=== PATIENT | female | born 1940 | race Caucasian/White ===

== ENCOUNTER 2016-08-23 19:14 | Inpatient (IN) ==
[2016-08-23 20:25] LABS: Basophils # 0.1 K/mcL (0.0-0.2); Basophils % 0.9 %; Eosinophils # 0.1 K/mcL (0.0-0.6); Eosinophils % 1.2 %; Hematocrit 33.2 % (35.3-44.9); Hemoglobin 10.2 g/dL (11.5-15.4); Immature Granulocytes % 0.5 % (0-4); Lymphocytes % 15.8 %; Mean Corpuscular HGB Conc 30.7 g/dL (31.6-35.5); Mean Corpuscular Hemoglobin 29.9 pg (28.0-33.3); Mean Corpuscular Volume 97.4 fL (83.0-100.0); Mean Platelet Volume 11.4 fL (9.4-12.4); Monocytes # 0.4 K/mcL (0.0-1.3); Monocytes % 6.4 %; Neutrophils # 4.9 K/mcL (1.6-8.9); Platelet Count 212 K/mcL (140-400); Red Blood Count 3.41 M/mcL (3.82-4.97); Red Cell Distribution Width 15.9 % (11.5-14.5); Segmented Neutrophils % 75.2 %
[2016-08-23 20:38] LABS: Bilirubin,Urine Negative (Negative); Blood,Urine Small (Negative); Clarity,Urine Cloudy (Clear); Color,Urine Yellow (Yellow); Glucose,Urine (UA) Normal (Normal); Ketones,Urine Negative (Negative); Leukocyte Esterase,Urine Moderate (Negative); Nitrite,Urine Negative (Negative); PH,Urine 5.5 pH Units (5.0-8.0); Protein,Urine 30 mg/dL (Neg-Trace); Specific Gravity,Urine 1.015 (1.010-1.025); Urobilinogen,Urine Normal (Normal)
[2016-08-23 20:39] LABS: Calcium 8.9 mg/dL (8.6-10.8); Potassium 5.1 mEq/L (3.5-4.5)
[2016-08-23 20:40] LABS: Bacteria,Urine None Seen per hpf (None-Few); Hyaline Casts,Urine Few per lpf (None-Few); Squamous Epithelial Cell,Urine Many per lpf (None-Few); WBC,Urine 50-100 per hpf (0-3)
[2016-08-23 20:51] LABS: Yeast,Urine Few per hpf (None Seen)
--- NOTE | 2016-08-23 21:21 | Emergency Department Note ---
Disposition Clinical Impression: Weakness UTI (urinary tract infection) Qualifiers: Urinary tract infection type: site unspecified Hematuria presence: without hematuria Qualified Code(s): N39.0 - Urinary tract infection, site not specified Disposition: Admitted As Inpatient Condition: Good General Adult HPI - General Chief complaint: ED Shortness of Breath/Dyspnea Stated complaint: jamal Time Seen by Provider: 08/23/16 19:21 Source: EMS Limitations: age Nursing Notes Reviewed: Yes Vital Signs Reviewed: Yes - History of Present Illness HPI Narrative: Patient here for evaluation of generalized weakness and no improvement. Patient was recently admitted to the hospital for weakness and reported pneumonia. Upon reevaluation appears that patient had mild CHF exacerbation as well as UTI. Patient's symptoms have not improved over the last several days so she presents at family's concern for reevaluation. Patient states mild cough. Mental cloudiness. Significant fatigue. Pain Scale: 0 - Related Data Home Medications Medication Instructions Recorded Confirmed Aspirin 81 mg PO DAILY 04/26/15 08/23/16 Clopidogrel [Plavix] 75 mg PO DAILY 04/26/15 08/23/16 Spironolactone [Aldactone] 25 mg PO BID 04/26/15 08/23/16 Acetaminophen [Tylenol] 650 mg PO Q6HR PRN 07/16/16 08/23/16 Albuterol Neb [Proventil Neb] 2.5 mg IH Q6H PRN 07/16/16 08/23/16 DiphenhydraMINE [Benadryl] 25 mg PO Q4H PRN 07/16/16 08/23/16 Insulin ASPART [NovoLOG] 0 unit SQ ACHS MDD Sliding Scale 07/16/16 08/23/16 Mirtazapine [Remeron] 15 mg PO HS 07/16/16 08/23/16 Morphine Sulfate 0.25 ml PO Q4H PRN 07/16/16 08/23/16 Nitroglycerin 4.1 gm TL PRN PRN 07/16/16 08/23/16 Oxygen 2 l NS PRN PRN 07/16/16 08/23/16 Prochlorperazine Maleate 10 mg PO Q6H PRN 07/16/16 08/23/16 [Compazine] Scopolamine Patch [Transderm-Scop] 1.5 mg TD Q72H PRN 07/16/16 08/23/16 Docusate Sodium [Dok] 100 mg PO BID PRN 08/12/16 08/23/16 Oxybutynin Chloride [Ditropan Xl] 10 mg PO DAILY 08/12/16 08/23/16 Pantoprazole Sodium [Protonix] 20 mg PO DAILY 08/12/16 08/23/16 Hydrocodone/Acetaminophen [[place] 1 tab PO Q6H PRN 08/23/16 08/23/16 5-325 Tablet] Previous Rx's Medication Instructions Recorded Sennosides/Docusate Sodium [Senna 1 each PO BID #60 tablet 07/19/16 Plus] LORazepam [Ativan] 0.5 mg PO BID PRN #10 tablet 08/14/16 Megestrol Acetate [Megace] 400 mg PO DAILY 60 Days 08/14/16 Nitrofurantoin [Macrodantin] 100 mg PO BID #7 capsule 08/14/16 Allergies Allergy/AdvReac Type Severity Reaction Status Date / Time No Known Allergies Allergy Verified 08/12/16 16:29 All systems ED: reviewed and negative except as stated. Constitutional: Reports: weakness. Denies: fever, chills Eyes: Denies: eye pain ENT ED: Denies: ear pain Cardiovascular: Denies: chest pain, palpitations Respiratory: Reports: cough Gastrointestinal: Denies: abdominal pain, nausea, vomiting Genitourinary: Denies: urgency, dysuria, frequency Musculoskeletal: Denies: back pain Integumentary: Denies: rash Neurological: Reports: weakness. 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 Absent : tenderness - Respiratory Respiratory exam: Present: other (Rales bilaterally). Absent: respiratory distress - Cardiovascular Cardiovascular exam: Present: regular rate, normal rhythm - Abdominal Exam Abdominal exam: Present: soft, Non-Tender - Extremities Exam Extremities exam: Present: other (Patient does not move her lower extremities at baseline. Wheelchair-bound.) Course - Reevaluation(s) Reevaluation #1: Patient with multiple comorbidities as well as urine concerning for infection and troponin as well as EKG changes. Patient will be admitted to the hospital service for further evaluation. Antibiotics not started at this time due to patient's complex history and allowing the hospital team to do this as early treatment of them. . - Consultations Consultation #1: Discussed with Dr. Marcano. Patient accepted for admission. Vital Signs Temperature 97.7 F 08/23/16 19:16 Pulse Rate 103 08/23/16 19:16 Respiratory Rate 20 08/23/16 19:16 Blood Pressure 118/75 08/23/16 19:16 O2 Sat by Pulse Oximetry 100 08/23/16 19:16 Temperature 97.7 F 08/23/16 19:16 Pulse Rate 92 08/23/16 22:44 Respiratory Rate 22 08/23/16 23:53 Blood Pressure 117/78 08/23/16 23:53 O2 Sat by Pulse Oximetry 97 08/23/16 22:44 Oxygen Delivery Oxygen Delivery Room Air Medical Decision Making - Medical Records Medical records reviewed: Yes I reviewed the patient's medical records. - Lab Data Lab results reviewed: Yes I reviewed the patient's lab results. Result diagrams: 08/23/16 20:15 08/23/16 20:15 Lab Results 08/23/16 08/23/16 08/23/16 Range/Units 19:28 20:15 20:15 WBC 6.5 (4.3-11.1) K/mcL RBC 3.41 L (3.82-4.97) M/mcL Hgb 10.2 L (11.5-15.4) g/dL Hct 33.2 L (35.3-44.9) % MCV 97.4 (83.0-100.0) fL MCH 29.9 (28.0-33.3) pg MCHC 30.7 L (31.6-35.5) g/dL RDW 15.9 H (11.5-14.5) % Plt Count 212 (140-400) K/mcL MPV 11.4 (9.4-12.4) fL Immature Gran % 0.5 (0-4) % Seg Neutrophils % 75.2 % Lymphocytes % 15.8 % Monocytes % 6.4 % Eosinophils % 1.2 % Basophils % 0.9 % Neutrophils # 4.9 (1.6-8.9) K/mcL Lymphocytes # 1.0 (0.6-4.6) K/mcL Monocytes # 0.4 (0.0-1.3) K/mcL Eosinophils # 0.1 (0.0-0.6) K/mcL Basophils # 0.1 (0.0-0.2) K/mcL Immature Plt Fraction 4.0 (1.1-6.1) % Sodium 137 (136-145) mEq/L Potassium 5.1 H (3.5-4.5) mEq/L Chloride 110 H (98-109) mEq/L Carbon Dioxide 18 L (19-29) mEq/L BUN 25 H (7-20) mg/dL Creatinine 1.45 H (0.57-1.11) mg/dL Est GFR ( Amer) 43 L (> 60) Est GFR (Non-Af Amer) 35 L (> 60) BUN/Creatinine Ratio 17 (6-26) Glucose 154 H (70-99) mg/dL POC Glucose 191 H (58-89) Calculated Osmolality 291 (280-300) Calcium 8.9 (8.6-10.8) mg/dL Troponin I (0-0.03) ng/mL B-Natriuretic Peptide (0-100) pg/mL Urine Color (Yellow) Urine Clarity (Clear) Urine pH (5.0-8.0) pH Units Ur Specific [place] (1.010-1.025) Urine Protein (Neg-Trace) mg/dL Urine Glucose (UA) (Normal) mg/dL Urine Ketones (Negative) mg/dL Urine Blood (Negative) Urine Nitrite (Negative) Urine Bilirubin (Negative) Urine Urobilinogen (Normal) mg/dL Ur Leukocyte Esterase (Negative) Urine Microscopic RBC (0-3) per hpf Urine Microscopic WBC (0-3) per hpf Ur Squamous Epith Cells (None-Few) per lpf Urine Bacteria (None-Few) per hpf Hyaline Casts (None-Few) per lpf Urine Yeast (None Seen) per hpf Ur Culture Indicated? (NO) 08/23/16 08/23/16 08/23/16 Range/Units 20:15 20:15 20:33 WBC (4.3-11.1) K/mcL RBC (3.82-4.97) M/mcL Hgb (11.5-15.4) g/dL Hct (35.3-44.9) % MCV (83.0-100.0) fL MCH (28.0-33.3) pg MCHC (31.6-35.5) g/dL RDW (11.5-14.5) % Plt Count (140-400) K/mcL MPV (9.4-12.4) fL Immature Gran % (0-4) % Seg Neutrophils % % Lymphocytes % % Monocytes % % Eosinophils % % Basophils % % Neutrophils # (1.6-8.9) K/mcL Lymphocytes # (0.6-4.6) K/mcL Monocytes # (0.0-1.3) K/mcL Eosinophils # (0.0-0.6) K/mcL Basophils # (0.0-0.2) K/mcL Immature Plt Fraction (1.1-6.1) % Sodium (136-145) mEq/L Potassium (3.5-4.5) mEq/L Chloride (98-109) mEq/L Carbon Dioxide (19-29) mEq/L BUN (7-20) mg/dL Creatinine (0.57-1.11) mg/dL Est GFR ( Amer) (> 60) Est GFR (Non-Af Amer) (> 60) BUN/Creatinine Ratio (6-26) Glucose (70-99) mg/dL POC Glucose (58-89) Calculated Osmolality (280-300) Calcium (8.6-10.8) mg/dL Troponin I 0.05 H* (0-0.03) ng/mL B-Natriuretic Peptide 1097 H (0-100) pg/mL Urine Color Yellow (Yellow) Urine Clarity Cloudy A (Clear) Urine pH 5.5 (5.0-8.0) pH Units Ur Specific [place] 1.015 (1.010-1.025) Urine Protein 30 H (Neg-Trace) mg/dL Urine Glucose (UA) Normal (Normal) mg/dL Urine Ketones Negative (Negative) mg/dL Urine Blood Small H (Negative) Urine Nitrite Negative (Negative) Urine Bilirubin Negative (Negative) Urine Urobilinogen Normal (Normal) mg/dL Ur Leukocyte Esterase Moderate H (Negative) Urine Microscopic RBC 3-5 H (0-3) per hpf Urine Microscopic WBC 50-100 H (0-3) per hpf Ur Squamous Epith Cells Many H (None-Few) per lpf Urine Bacteria None Seen (None-Few) per hpf Hyaline Casts Few (None-Few) per lpf Urine Yeast Few H (None Seen) per hpf Ur Culture Indicated? YES A (NO) - Radiology Data Radiology results reviewed: Yes I reviewed the patient's radiology results. - EKG Data EKG #1 EKG attestation: Yes I reviewed and interpreted this EKG. EKG results narrative: EKG shows sinus tachycardia with ventricular rate of 104. ME interval 152. QRS 87. QTC 4606. Patient has no ST elevations or depressions. Patient has inverted T waves in the anterior leads. Patient with inferior T-wave inversions new from 08/12/16. Patient also has new inferior T-wave changes. Attestation Statement - Attestation Attestation: I examined this patient and my medical decision-making was reviewed with the Resident Physician. I agree with the documented findings, disposition and treatment plan as described except to the extent set forth below. Generalized weakness with UTI. Has non-specific inferior T-wave changes compared to EKG from a week ago, troponin borderline at 0.05. HD stable, appears somewhat weak and frail but non-toxic.
[2016-08-23] MEDS ORDERED: Aspirin 81 MG TAB.CHEW PO STA (22:30)
[2016-08-23] MEDS ORDERED: *HR* Morphine 2 MG/ML SYRINGE IVP PRN (23:31)
[2016-08-23] MEDS ORDERED: *HR* OxyCODONE Immed Rel 5 MG TABLET PO PRN (23:31)
[2016-08-23] MEDS ORDERED: Acetaminophen 325 MG TABLET PO PRN (23:31)
[2016-08-23] MEDS ORDERED: *HR* Promethazine 25 MG/ML VIAL IVP PRN (23:31)
[2016-08-23] MEDS ORDERED: Naloxone 0.4 MG/ML INJ IVP PRN (23:31)
[2016-08-23] MEDS ORDERED: Albuterol 2.5 MG/3 ML NEBULIZER IH PRN (23:42)
[2016-08-23] MEDS ORDERED: MORPHINE SULFATE PO PRN (23:42)
[2016-08-23] MEDS ORDERED: NON-FORMULARY MEDICATION 1 EACH EACH (Oxygen [Oxygen] 2 L) NS PRN (23:42)
[2016-08-24 00:09] LABS: VBG PH 7.39 pH Units (7.32-7.42)
[2016-08-24 00:15] LABS: Ionized Calcium 0.95 mmol/L (1.15-1.35)
[2016-08-24 00:18] LABS: VBG HCO3 16.5 mEq/L (21-27)
[2016-08-24 00:24] LABS: Magnesium 1.7 mg/dL (1.6-2.6); Phosphorous 3.2 mg/dL (2.3-4.7)
[2016-08-24] MEDS: Ampicillin/Sulbactam 1,500 MG in 0.9 % Sodium Chloride Mini Bag 100 ML IVPB SCH ×4 (00:55→18:05)
[2016-08-24] MEDS ORDERED: Magnesium Sulfate 1 GM in D5% in Water 100 ML IVPB ONE (01:51)
[2016-08-24] MEDS ORDERED: Calcium Gluconate 2,000 MG in D5% in Water 100 ML IVPB ONE (01:51)
--- NOTE | 2016-08-24 02:21 | Internal Med History&Physical ---
<Anthony Reed - Last Filed: 08/24/16 02:51> Date of Encounter: 08/24/16 Time of Encounter: 02:00 Assessment and Plan (1) UTI (urinary tract infection) Current visit: Yes Status: Acute Recent Urine culture grew widely resistance Enterococcus, Unasyn sensitive. Urine culture pending. Initial UA likely contaminated, consider a repeat now that patient has santo in place. Patient started on Unasyn. Continue IVFs. Qualifiers: Urinary tract infection type: site unspecified Hematuria presence: without hematuria Qualified Code(s): N39.0 - Urinary tract infection, site not specified (2) Weakness Current visit: Yes Status: Acute Treat underlying illness. Consult to PT/OT. (3) Altered mental status Current visit: No Status: Chronic Patient's baseline is unknown. Family not currently present. No focal deficits notes. Patient unsure of events in the past timeline of events. Continue to monitor. Qualifiers: Altered mental status type: unspecified Qualified Code(s): R41.82 - Altered mental status, unspecified (4) CHF (congestive heart failure) Current visit: No Status: Chronic CXR showed developing interstitial and alveolar opacitis, suggestive of pulmonary edema. History of CHF. Patient currently requiring 2 lpm of O2 supplementation. No rhonchi or LE edema noted. Patient denies any chest pain. Will be giving IVFs, closely monitor. Qualifiers: Congestive heart failure type: systolic Congestive heart failure chronicity : acute on chronic Qualified Code(s): I50.23 - Acute on chronic systolic ( congestive) heart failure (5) CKD (chronic kidney disease) Current visit: No Status: Chronic Stable stage 3 CKD, with SCr of 1.45 and FR 35. Will continue IVFs, but monitor in the setting of CHF. Qualifiers: Chronic kidney disease stage: stage 3 (moderate) Qualified Code(s): N18.3 - Chronic kidney disease, stage 3 (moderate) (6) Diabetes mellitus Current visit: No Status: Chronic Continue home regimen with medium SSI. Qualifiers: Diabetes mellitus type: type 2 Diabetes mellitus complication status: with kidney complications Diabetes mellitus complication detail: with chronic kidney disease Diabetes mellitus social worker insulin use: with social worker use Chronic kidney disease stage: stage 3 (moderate) Qualified Code(s): E11.22 - Type 2 diabetes mellitus with diabetic chronic kidney disease; N18.3 - Chronic kidney disease, stage 3 (moderate); Z79.4 - nursing home (current) use of insulin (7) Elevated troponin I level Current visit: No Status: Chronic Likely secondary to demand ischemia from cardiomyopathy and CKD. Flat tropes, correlated with past levels. Noted new T wave inversion on EKG. Current troponins 0.05 then 0.04. Patinet denies any chest pain. Continue ASA, Plavix. Internal Medicine - H&P: HPI Chief complaint: Weakness Admitted From: Emergency Dept Plans for Post Hospital Care: Transfer [facility] Facility History of present illness: Ms. Carpenter is a 76 year old female, presented to the ED via EMS from [facility] at the request of family for re-evaluation. Patient states she doesn't know exactly why she is here, but does admit to increased weakness and fatigue for approx 1-2 months, occasional shortness of breath, and painful urination for unknown duration. Patient denies headache, dizziness, chest pain, abdominal pain , nausea, vomiting, diarrhea, or blood in urine/stool. Patient was recently admitted on , treated for UTI and returned to SNF on nitrofurantoin. Patient is unsure if she completed this medication. Patient noted to have pertinent history of urinary incontinence, CKD, CHF, AR in 2014, CVA in 2014, HTN, HLD, DM. Patient states she had a santo in place for approx 5 years. Patient notes with her weakness she has had difficulty walking and is unable to ambulate currently. It appears from previous admission, Dr. Stephens had spoken to [facility] which confirmed that patient was discharged from the SNF around mid Jul 2016 for reaching goals of physical therapy, including ambulating on her own. Past Med Surg Social Fam HX - Past Medical History Medical history: atrial fibrillation, CHF, COPD, coronary artery disease, CVA, diabetes, hyperlipidemia, hypertension, myocardial infarction, osteoporosis Psychiatric history: depression - Past Surgical History Surgical History: angioplasty/stent, cholecystectomy, hysterectomy - Social History Smoking Status: Never smoker Smokeless Tobacco Status: No Alcohol use: none Drug use: none - Family History Mother Living Status: Hx Family Cardiac Disorders: Yes Hx Family Respiratory Disorders: No Father Living Status: Hx Family Cardiac Disorders: Yes Hx Family Respiratory Disorders: No Hx Family Cancer: Yes (stomach) Internal Medicine - H&P: Meds Aspirin 81 mg PO DAILY 04/26/15 [History] Clopidogrel [Plavix] 75 mg PO DAILY 04/26/15 [History] Spironolactone [Aldactone] 25 mg PO BID 04/26/15 [History] Acetaminophen [Tylenol] 650 mg PO Q6HR PRN 07/16/16 [History] Albuterol Neb [Proventil Neb] 2.5 mg IH Q6H PRN 07/16/16 [History] DiphenhydraMINE [Benadryl] 25 mg PO Q4H PRN 07/16/16 [History] Insulin ASPART [NovoLOG] 0 unit SQ ACHS MDD Sliding Scale 07/16/16 [History] Mirtazapine [Remeron] 15 mg PO HS 07/16/16 [History] Morphine Sulfate 0.25 ml PO Q4H PRN 07/16/16 [History] Nitroglycerin 4.1 gm TL PRN PRN 07/16/16 [History] Oxygen 2 l NS PRN PRN 07/16/16 [History] Prochlorperazine Maleate [Compazine] 10 mg PO Q6H PRN 07/16/16 [History] Scopolamine Patch [Transderm-Scop] 1.5 mg TD Q72H PRN 07/16/16 [History] Sennosides/Docusate Sodium [Senna Plus] 1 each PO BID #60 tablet 07/19/16 [Rx] Docusate Sodium [Dok] 100 mg PO BID PRN 08/12/16 [History] Oxybutynin Chloride [Ditropan Xl] 10 mg PO DAILY 08/12/16 [History] Pantoprazole Sodium [Protonix] 20 mg PO DAILY 08/12/16 [History] LORazepam [Ativan] 0.5 mg PO BID PRN #10 tablet 08/14/16 [Rx] Megestrol Acetate [Megace] 400 mg PO DAILY 60 Days 08/14/16 [Rx] Nitrofurantoin [Macrodantin] 100 mg PO BID #7 capsule 08/14/16 [Rx] Hydrocodone/Acetaminophen [Lares 5-325 Tablet] 1 tab PO Q6H PRN 08/23/16 [ History] Allergies No Known Allergies Allergy (Verified 08/12/16 16:29) All Systems PM: A 10-system review of systems was performed and is negative for pertinent findings except as documented above in the HPI. - Constitutional Constitutional: no anorexia, no fever(s) - EENT Eyes: no change in vision Nose, mouth and throat: no dysphagia, no neck pain - Cardiovascular Cardiovascular ROS IM: dyspnea, no chest pain, no lightheadedness, no syncope - Respiratory Respiratory: cough - Gastrointestinal Gastrointestinal: no abdominal pain, no diarrhea, no nausea, no vomiting - Genitourinary Genitourinary: dysuria, no flank pain - Neurological Neurological ROS: weakness, no dizziness, no focal weakness, no headache(s) - Psychiatric Psychiatric: anxiety, no depression - Endocrine Endocrine IM: fatigue, no polyuria - Constitutional Vitals: Temp Pulse Resp BP Pulse Ox 98.4 F 87 16 134/82 95 08/24/16 00:44 08/24/16 00:44 08/24/16 00:44 08/24/16 00:44 08/24/16 00:44 General appearance: Present: cooperative, A&O X 2 (Not oriented to time or situation.), no acute distress - Head Head exam: Present: atraumatic, normocephalic - Eye Eye exam: Present: EOMI, PERRL, conjuntiva pink, sclera anicteric Pupils: Present: PERRL - Neck Neck exam general surgery: Present: full ROM, supple, trachea midline. Absent: lymphadenopathy, tenderness - Respiratory Respiratory exam: Present: decreased breath sounds, CTAB. Absent: accessory muscle use, rales, rhonchi, wheezes - Cardiovascular Cardiovascular exam: Present: RRR, +S1, +S2, systolic murmur (holosystolic). Absent: diastolic murmur, gallop, rubs - GI/Abdominal GI/Abdominal exam: Present: normal bowel sounds, soft, no peritoneal signs. Absent: distended, guarding, tenderness - Extremities Exam Extremities exam: Present: warm. Absent: calf tenderness, cyanotic, pedal edema - Neurological Exam Neurological exam: Present: alert, oriented X3, no focal deficits. Absent: pronater drift, facial droop, speech deficit (whispered tone, but clear, not slurred.) - Skin Skin exam: Present: dry, intact Internal Med - H&P Results - Labs CBC & Chem 7: 08/23/16 20:15 08/23/16 20:15 Labs: Cardiac Enzymes 08/24/16 Range/Units 00:02 Troponin I 0.04 H* (0-0.03) ng/mL - ABG Interpretation ABG results: 08/24/16 00:02 VBG pH 7.39 VBG pCO2 26 L VBG pO2 93 H VBG HCO3 16.5 L <Dex Marcano - Last Filed: 08/25/16 03:18> Date of Encounter: 08/24/16 Assessment and Plan (1) Critical illness myopathy Current visit: Yes Status: Chronic . (2) Demand ischemia of myocardium Current visit: Yes Status: Acute . (3) Encephalopathy chronic Current visit: Yes Status: Chronic . (4) Delirium due to conditions classified elsewhere Current visit: Yes Status: Acute . (5) CAD (coronary artery disease), [place] coronary artery Current visit: Yes Status: Chronic . Qualifiers: [place] vs. transplanted heart: [place] heart Associated angina: angina presence unspecified Qualified Code(s): I25.10 - Atherosclerotic heart disease of [place] coronary artery without angina pectoris (6) History of PTCA Current visit: Yes Status: Chronic . (7) Depression with anxiety Current visit: Yes Status: Chronic . (8) Anemia of chronic disease Current visit: Yes Status: Chronic . (9) Hyperkalemia, diminished renal excretion Current visit: Yes Status: Acute . (10) Metabolic acidosis with normal anion gap and bicarbonate losses Current visit: Yes Status: Acute . (11) Acute on chronic systolic (congestive) heart failure Current visit: Yes Status: Acute . (12) ICD (implantable cardioverter-defibrillator) in place Current visit: Yes Status: Chronic . (13) Ischemic dilated cardiomyopathy Current visit: Yes Status: Chronic . (14) Valvular heart disease Current visit: Yes Status: Chronic . (15) Chronic atrial fibrillation Current visit: Yes Status: Chronic . (16) COPD mixed type Current visit: Yes Status: Chronic . (17) History of CVA with residual deficit Current visit: Yes Status: Chronic . (18) Age-related physical debility Current visit: Yes Status: Chronic . (19) Altered mental status Current visit: Yes Status: Acute Qualifiers: Altered mental status type: transient alteration of awareness Qualified Code(s): R40.4 - Transient alteration of awareness (20) Chronic systolic CHF (congestive heart failure) Current visit: Yes Status: Chronic . (21) Elevated troponin I level Current visit: Yes Status: Acute (22) Hyperglycemia due to type 2 diabetes mellitus Current visit: Yes Status: Chronic . Qualifiers: Diabetes mellitus social worker insulin use: with social worker use Qualified Code( s): E11.65 - Type 2 diabetes mellitus with hyperglycemia; Z79.4 - nursing home ( current) use of insulin (23) Acute kidney injury superimposed on CKD Current visit: Yes Status: Acute . (24) UTI (urinary tract infection) due to urinary indwelling Santo catheter Current visit: Yes Status: Acute . Qualifiers: Indwelling urinary catheter type: indwelling urethral catheter Encounter type: initial encounter Qualified Code(s): T83.511A - Infection and inflammatory reaction due to indwelling urethral catheter, initial encounter; N39.0 - Urinary tract infection, site not specified Internal Medicine - H&P: HPI History of present illness: Ms. Carpenter is a 76 year old female Patient was visited and interviewed and examined. I examined this patient and my medical decision-making was reviewed with the Resident Physician. I agree with the documented findings, disposition and treatment plan as described except to the extent set forth below. Cumulative laboratory and radiographic data was reviewed and considered and discussed. Pertinent ancillary medical records including ECW and PCI documentation, when available, was reviewed and considered. Given the patient's presenting concerns, past medical history, clinical findings and symptoms, she is admitted this time to undergo further evaluation and disposition. Orders were written as per the computerized physician orderlies teacher system............................................................. All Systems PM: A 10-system review of systems was performed and is negative for pertinent findings except as documented above in the HPI. - Constitutional Vitals: Temp Pulse Resp BP Pulse Ox 97.8 F 97 16 99/61 96 08/24/16 23:34 08/24/16 23:34 08/24/16 23:34 08/24/16 23:34 08/24/16 23:34 Internal Med - H&P Results - Labs CBC & Chem 7: 08/24/16 05:48 08/24/16 05:48 - Impressions Vital Signs Temp Pulse Resp BP Pulse Ox 08/24/16 23:34 97.8 F 97 16 99/61 96 08/24/16 22:30 20 98 08/24/16 19:38 98 08/24/16 19:33 97.4 F L 88 16 126/80 98 08/24/16 16:22 18 99 08/24/16 15:54 98.1 F 95 17 123/76 99 08/24/16 11:28 97.8 F 61 16 113/62 94 L 08/24/16 10:09 18 99 08/24/16 09:45 90 L 08/24/16 07:49 98.7 F 90 16 153/90 90 L 08/24/16 04:36 18 100 08/24/16 03:33 98.1 F 88 18 125/79 100 Intake and Output 08/24/16 08/24/16 08/25/16 15:59 23:59 07:59 Intake Total 100 / 100 1000 / 1000 Output Total 600 / 600 Balance -500 / -500 1000 / 1000 Intake: IV Fluids 100 / 100 1000 / 1000 0.9 % Sodium Chloride 1, 1000 / 1000 000 ML @ 70 mls/hr IVC . [id number] JAIME Rx#: [id number] Unasyn 1,500 mg In 0.9 % 100 / 100 Sodium Chloride (Mini-Bag +) 100 ML @ 200 mls/hr IVPB Q6HR [facility] Rx#: [id number] Output: Catheter 600 / 600 Other: Blood Glucose* 173 291 Short CBC 08/24/16 Range/Units 05:48 WBC 6.4 (4.3-11.1) K/mcL Hgb 9.9 L (11.5-15.4) g/dL Hct 32.1 L (35.3-44.9) % Plt Count 210 (140-400) K/mcL BMP 08/24/16 Range/Units 05:48 Sodium 134 L (136-145) mEq/L Potassium 5.1 H (3.5-4.5) mEq/L Chloride 107 (98-109) mEq/L Carbon Dioxide 18 L (19-29) mEq/L BUN 25 H (7-20) mg/dL Creatinine 1.40 H (0.57-1.11) mg/dL Glucose 166 H (70-99) mg/dL Calcium 9.4 (8.6-10.8) mg/dL Cardiac Enzymes 08/24/16 08/24/16 Range/Units 12:11 05:48 Troponin I 0.03 0.03 (0-0.03) ng/mL Liver Function 08/24/16 Range/Units 05:48 Total Bilirubin 0.8 (0.2-1.2) mg/dL AST 15 (5-34) Units/L ALT 13 (0-55) Units/L Alkaline Phosphatase 108 (38-126) Units/L Albumin 3.0 L (3.5-5.0) g/dL Abnormal lab results RBC 3.33 M/mcL (3.82-4.97) L 08/24/16 05:48 Hgb 9.9 g/dL (11.5-15.4) L 08/24/16 05:48 Hct 32.1 % (35.3-44.9) L 08/24/16 05:48 MCHC 30.8 g/dL (31.6-35.5) L 08/24/16 05:48 RDW 16.0 % (11.5-14.5) H 08/24/16 05:48 ESR 78 mm/hr (0-15) H 08/24/16 05:48 PT 16.6 Seconds (9.4-12.1) H 08/24/16 05:48 VBG pCO2 26 mmHg (41-51) L 08/24/16 00:02 VBG pO2 93 mmHg (25-40) H 08/24/16 00:02 VBG HCO3 16.5 mEq/L (21-27) L 08/24/16 00:02 Sodium 134 mEq/L (136-145) L 08/24/16 05:48 Potassium 5.1 mEq/L (3.5-4.5) H 08/24/16 05:48 Carbon Dioxide 18 mEq/L (19-29) L 08/24/16 05:48 BUN 25 mg/dL (7-20) H 08/24/16 05:48 Creatinine 1.40 mg/dL (0.57-1.11) H 08/24/16 05:48 Est GFR ( Amer) 44 (> 60) L 08/24/16 05:48 Est GFR (Non-Af Amer) 37 (> 60) L 08/24/16 05:48 Glucose 166 mg/dL (70-99) H 08/24/16 05:48 POC Glucose 291 (58-89) H 08/24/16 20:40 Hemoglobin A1c 8.5 % (-5.6) H 08/24/16 05:48 Ionized Calcium 0.95 mmol/L (1.15-1.35) L 08/24/16 00:02 C-Reactive Protein 41 mg/L (Less than 5) H 08/24/16 05:48 B-Natriuretic Peptide 1097 pg/mL (0-100) H 08/23/16 20:15 Albumin 3.0 g/dL (3.5-5.0) L 08/24/16 05:48 Globulin 4.5 g/dL (2.4-3.5) H 08/24/16 05:48 Albumin/Globulin Ratio 0.7 (1.1-2.2) L 08/24/16 05:48 HDL Cholesterol 25 mg/dL (40-59) L 08/24/16 05:48 Urine Clarity Cloudy (Clear) A 08/23/16 20:33 Urine Protein 30 mg/dL (Neg-Trace) H 08/23/16 20:33 Urine Blood Small (Negative) H 08/23/16 20:33 Ur Leukocyte Esterase Moderate (Negative) H 08/23/16 20:33 Urine Microscopic RBC 3-5 per hpf (0-3) H 08/23/16 20:33 Urine Microscopic WBC 50-100 per hpf (0-3) H 08/23/16 20:33 Ur Squamous Epith Cells Many per lpf (None-Few) H 08/23/16 20:33 Urine Yeast Few per hpf (None Seen) H 08/23/16 20:33 Ur Culture Indicated? YES (NO) A 08/23/16 20:33 08/24/16 00:02 VBG pH 7.39 VBG pCO2 26 L VBG pO2 93 H VBG HCO3 16.5 L Allergies Allergy/AdvReac Type Severity Reaction Status Date / Time No Known Allergies Allergy Verified 08/12/16 16:29 Laboratory Results WBC 6.4 K/mcL (4.3-11.1) 08/24/16 05:48 RBC 3.33 M/mcL (3.82-4.97) L 08/24/16 05:48 Hgb 9.9 g/dL (11.5-15.4) L 08/24/16 05:48 Hct 32.1 % (35.3-44.9) L 08/24/16 05:48 MCV 96.4 fL (83.0-100.0) 08/24/16 05:48 MCH 29.7 pg (28.0-33.3) 08/24/16 05:48 MCHC 30.8 g/dL (31.6-35.5) L 08/24/16 05:48 RDW 16.0 % (11.5-14.5) H 08/24/16 05:48 Plt Count 210 K/mcL (140-400) 08/24/16 05:48 MPV 10.6 fL (9.4-12.4) 08/24/16 05:48 Immature Gran % 0.5 % (0-4) 08/23/16 20:15 Seg Neutrophils % 75.2 % 08/23/16 20:15 Lymphocytes % 15.8 % 08/23/16 20:15 Monocytes % 6.4 % 08/23/16 20:15 Eosinophils % 1.2 % 08/23/16 20:15 Basophils % 0.9 % 08/23/16 20:15 Neutrophils # 4.9 K/mcL (1.6-8.9) 08/23/16 20:15 Lymphocytes # 1.0 K/mcL (0.6-4.6) 08/23/16 20:15 Monocytes # 0.4 K/mcL (0.0-1.3) 08/23/16 20:15 Eosinophils # 0.1 K/mcL (0.0-0.6) 08/23/16 20:15 Basophils # 0.1 K/mcL (0.0-0.2) 08/23/16 20:15 Immature Plt Fraction 4.0 % (1.1-6.1) 08/23/16 20:15 ESR 78 mm/hr (0-15) H 08/24/16 05:48 PT 16.6 Seconds (9.4-12.1) H 08/24/16 05:48 INR 1.5 08/24/16 05:48 APTT 34.7 Seconds (26.0-36.0) 08/24/16 05:48 VBG pH 7.39 pH Units (7.32-7.42) 08/24/16 00:02 VBG pCO2 26 mmHg (41-51) L 08/24/16 00:02 VBG pO2 93 mmHg (25-40) H 08/24/16 00:02 VBG HCO3 16.5 mEq/L (21-27) L 08/24/16 00:02 Sodium 134 mEq/L (136-145) L 08/24/16 05:48 Potassium 5.1 mEq/L (3.5-4.5) H 08/24/16 05:48 Chloride 107 mEq/L (98-109) 08/24/16 05:48 Carbon Dioxide 18 mEq/L (19-29) L 08/24/16 05:48 BUN 25 mg/dL (7-20) H 08/24/16 05:48 Creatinine 1.40 mg/dL (0.57-1.11) H 08/24/16 05:48 Est GFR ( Amer) 44 (> 60) L 08/24/16 05:48 Est GFR (Non-Af Amer) 37 (> 60) L 08/24/16 05:48 BUN/Creatinine Ratio 18 (6-26) 08/24/16 05:48 Glucose 166 mg/dL (70-99) H 08/24/16 05:48 POC Glucose 291 (58-89) H 08/24/16 20:40 Est Mean Plasma Glucose 197 mg/dl 08/24/16 05:48 Hemoglobin A1c 8.5 % (-5.6) H 08/24/16 05:48 Calculated Osmolality 286 (280-300) 08/24/16 05:48 Lactic Acid 2.0 mmol/L (0.5-2.2) 08/24/16 00:02 Calcium 9.4 mg/dL (8.6-10.8) 08/24/16 05:48 Ionized Calcium 0.95 mmol/L (1.15-1.35) L 08/24/16 00:02 Phosphorus 3.2 mg/dL (2.3-4.7) 08/24/16 00:02 Magnesium 1.7 mg/dL (1.6-2.6) 08/24/16 00:02 Total Bilirubin 0.8 mg/dL (0.2-1.2) 08/24/16 05:48 AST 15 Units/L (5-34) 08/24/16 05:48 ALT 13 Units/L (0-55) 08/24/16 05:48 Alkaline Phosphatase 108 Units/L (38-126) 08/24/16 05:48 Troponin I 0.03 ng/mL (0-0.03) 08/24/16 12:11 C-Reactive Protein 41 mg/L (Less than 5) H 08/24/16 05:48 B-Natriuretic Peptide 1097 pg/mL (0-100) H 08/23/16 20:15 Serum Total Protein 7.5 g/dL (6.0-8.3) 08/24/16 05:48 Albumin 3.0 g/dL (3.5-5.0) L 08/24/16 05:48 Globulin 4.5 g/dL (2.4-3.5) H 08/24/16 05:48 Albumin/Globulin Ratio 0.7 (1.1-2.2) L 08/24/16 05:48 Triglycerides 72 mg/dL (< 150) 08/24/16 05:48 Cholesterol 110 mg/dL (< 200) 08/24/16 05:48 LDL Cholesterol, Calc 71 mg/dL (0-99) 08/24/16 05:48 VLDL Cholesterol, Calc 14 mg/dL (< 31) 08/24/16 05:48 HDL Cholesterol 25 mg/dL (40-59) L 08/24/16 05:48 Cholesterol/HDL Ratio 4.4 (0-4.9) 08/24/16 05:48 TSH 3.871 mcIU/mL (0.350-4.840) 08/24/16 05:48 Urine Color Yellow (Yellow) 08/23/16 20:33 Urine Clarity Cloudy (Clear) A 08/23/16 20:33 Urine pH 5.5 pH Units (5.0-8.0) 08/23/16 20:33 Ur Specific [place] 1.015 (1.010-1.025) 08/23/16 20:33 Urine Protein 30 mg/dL (Neg-Trace) H 08/23/16 20:33 Urine Glucose (UA) Normal mg/dL (Normal) 08/23/16 20:33 Urine Ketones Negative mg/dL (Negative) 08/23/16 20:33 Urine Blood Small (Negative) H 08/23/16 20:33 Urine Nitrite Negative (Negative) 08/23/16 20:33 Urine Bilirubin Negative (Negative) 08/23/16 20:33 Urine Urobilinogen Normal mg/dL (Normal) 08/23/16 20:33 Ur Leukocyte Esterase Moderate (Negative) H 08/23/16 20:33 Urine Microscopic RBC 3-5 per hpf (0-3) H 08/23/16 20:33 Urine Microscopic WBC 50-100 per hpf (0-3) H 08/23/16 20:33 Ur Squamous Epith Cells Many per lpf (None-Few) H 08/23/16 20:33 Urine Bacteria None Seen per hpf (None-Few) 08/23/16 20:33 Hyaline Casts Few per lpf (None-Few) 08/23/16 20:33 Urine Yeast Few per hpf (None Seen) H 08/23/16 20:33 Ur Culture Indicated? YES (NO) A 08/23/16 20:33 Impressions Chest X-Ray 08/23/16 20:00 IMPRESSION: Developing at interstitial and alveolar opacities, suggestive of pulmonary edema. D/ / Chad Faulkner MD / Chad Faulkner MD Interpreting Provider: Chad Faulkner MD - Attending Attestation My signature below is to certify that this patient is under my care and that I, or the Resident Physician working with me, has had a [id number] encounter with this patient. Plan of care has been reviewed and discussed in detail with the patient. Questions addressed to her satisfaction and reassurance. Advance care directive discussion briefly addressed. Patient does declare specific healthcare restrictions at this time. Outpatient medication schedules will be reviewed, confirmed and facilitated as appropriate. Reconciliation of home treatments including adjustments, substitutions and reintroduction into treatment regimen will address necessary maintenance therapies for chronic pre-existing medical conditions. Smoking cessation counseling briefly addressed. The patient declares herself in nonsmoker. Hospital course will be dependent on clinical findings, treatment response and potential consultative interventions. The patient is a risk for further acute clinical decline and morbidity given her advanced age, presenting chief complaints, frailty and associated comorbidities. Condition is serious. Prognosis is cautiously optimistic. CODE STATUS is DO NOT RESUSCITATE, Comfort Care arrest.
[2016-08-24] MEDS: *HR* LORazepam 0.5 MG TABLET PO PRN (02:37)
[2016-08-24] MEDS ORDERED: 0.9 % Sodium Chloride 1,000 ML IVC SCH (04:00)
[2016-08-24] MEDS: Ipratropium/Albuterol Neb 3 ML IH SCH ×4 (04:36→22:30)
[2016-08-24 05:57] LABS: Hematocrit 32.1 % (35.3-44.9); Hemoglobin 9.9 g/dL (11.5-15.4); Mean Corpuscular HGB Conc 30.8 g/dL (31.6-35.5); Mean Corpuscular Hemoglobin 29.7 pg (28.0-33.3); Mean Corpuscular Volume 96.4 fL (83.0-100.0); Mean Platelet Volume 10.6 fL (9.4-12.4); Platelet Count 210 K/mcL (140-400); Red Blood Count 3.33 M/mcL (3.82-4.97)
[2016-08-24 06:01] LABS: INR 1.5; Prothrombin Time 16.6 Seconds (9.4-12.1)
[2016-08-24 06:04] LABS: Activated Partial Thrombo Time 34.7 Seconds (26.0-36.0)
[2016-08-24 06:09] LABS: Hemoglobin A1C 8.5 %
[2016-08-24 06:13] LABS: Albumin/Globulin Ratio 0.7 (1.1-2.2); Bilirubin,Total 0.8 mg/dL (0.2-1.2); Calcium 9.4 mg/dL (8.6-10.8); Chol/HDL Ratio 4.4 (0-4.9); Globulin 4.5 g/dL (2.4-3.5); Potassium 5.1 mEq/L (3.5-4.5); Total Protein 7.5 g/dL (6.0-8.3)
[2016-08-24 06:35] LABS: Thyroid Stimulating Hormone 3.871 mcIU/mL (0.350-4.840)
[2016-08-24] MEDS ORDERED: Furosemide 20 MG/2 ML VIAL IVP ONE (08:47)
--- NOTE | 2016-08-24 08:48 | Event Note ---
<Maria Del Carmen Wilson - Last Filed: 08/24/16 13:47> Date of Encounter: 08/24/16 Time of Encounter: 08:15 Patient seen/eval at bedside, H&P from earlier this morning reviewed. She would affirm long-term supp oxygen use, residing in [facility], indwelling santo. She denies any fever, chest pain, pressure, nvd. She has indwelling santo and denies any dysuria or gross hematuria, but does relay some subjective chills. UA with many squamous cells, sent for culture. History recurrent UTIs, 08/12/16 enterococcus faecalis sensitive to ampicillin, macrobid 07/16/16 Klebsiella spp, E coli sensitive to Rocephin. Exam: Pleasant, AO x 2, scant crackles on lung bases, Heart RR no JVD, Abd soft nt nd, santo in place medium abraham without gross sediment/hematuria. A/P Complicated UTI due to indwelling santo catheter Cont Unasyn, await return of culture for deescalation Elevated Troponin Adynamic, in setting of UTI, trended down from 0.05. Suspect CHF exacerbation Evidenced with basilar crackles, CXR Monitor I/O, cardiac diet. Gentle diuresis. SCr appears at baseline 1.4-1.5 Hyperkalemia Hold spironolactone Already received Ca Gluconate Lasix Kayexalate Monitor <Carlin Azevedo - Last Filed: 08/24/16 14:05> Date of Encounter: 08/24/16 I examined this patient and my medical decision-making was reviewed with the [employer] DISPATCHER/PA/Advanced Practice Nurse/Resident Physician. I agree with the documented findings, disposition and treatment plan as described except to the extent set forth below. UTI, continue with antibiotics, unasyn. D/W patient and family member.
[2016-08-24] MEDS ORDERED: Spironolactone 25 MG TABLET PO SCH (09:00)
[2016-08-24] MEDS: Sennosides/Docusate Sodium TABLET PO SCH ×2 (09:29→20:59)
[2016-08-24] MEDS: Megestrol Acetate 400 MG/10 ML UDC PO SCH (09:29)
[2016-08-24] MEDS: Aspirin 81 MG TAB.CHEW PO SCH (09:29)
[2016-08-24] MEDS: 0.9 % Sodium Chloride 1,000 ML IVC SCH ×2 (13:40→19:38)
[2016-08-24] MEDS: Mirtazapine 15 MG TABLET PO SCH (20:59)
[2016-08-25 03:21] LABS: Basophils # 0.1 K/mcL (0.0-0.2); Basophils % 0.8 %; Eosinophils # 0.1 K/mcL (0.0-0.6); Eosinophils % 0.8 %; Hematocrit 28.7 % (35.3-44.9); Hemoglobin 9.1 g/dL (11.5-15.4); Immature Granulocytes % 0.8 % (0-4); Lymphocytes # 0.8 K/mcL (0.6-4.6); Lymphocytes % 12.7 %; Mean Corpuscular HGB Conc 31.7 g/dL (31.6-35.5); Mean Corpuscular Hemoglobin 30.3 pg (28.0-33.3); Mean Corpuscular Volume 95.7 fL (83.0-100.0); Mean Platelet Volume 11.1 fL (9.4-12.4); Monocytes # 0.4 K/mcL (0.0-1.3); Monocytes % 5.9 %; Platelet Count 168 K/mcL (140-400); Red Cell Distribution Width 16.2 % (11.5-14.5)
[2016-08-25 03:34] LABS: Calcium 8.1 mg/dL (8.6-10.8); Magnesium 1.8 mg/dL (1.6-2.6); Potassium 4.1 mEq/L (3.5-4.5)
[2016-08-25 04:16] LABS: Folate 8.9 ng/mL (7.0-31.4)
[2016-08-25] MEDS: Ipratropium/Albuterol Neb 3 ML IH SCH ×3 (04:51→16:17)
[2016-08-25] MEDS: *HR* LORazepam 0.5 MG TABLET PO PRN (05:26)
[2016-08-25] MEDS: Ampicillin/Sulbactam 1,500 MG in 0.9 % Sodium Chloride Mini Bag 100 ML IVPB SCH ×2 (05:27→17:15)
[2016-08-25] MEDS ORDERED: D5% in Water 1,000 ML IV PRN (08:07)
[2016-08-25] MEDS ORDERED: *HR* Dextrose 50 % in Water (Syg) 50 ML SYRINGE IVP PRN (08:07)
[2016-08-25] MEDS ORDERED: Dextrose Gel 15 GM PO PRN ×2 (08:07)
[2016-08-25] MEDS: Megestrol Acetate 400 MG/10 ML UDC PO SCH (09:00)
[2016-08-25] MEDS: Aspirin 81 MG TAB.CHEW PO SCH (09:01)
[2016-08-25] MEDS: Sennosides/Docusate Sodium TABLET PO SCH ×2 (09:01→21:31)
[2016-08-25] MEDS: Insulin LISPRO 300 UNITS/3 ML VIAL SQ SCH ×3 (09:01→17:15)
--- NOTE | 2016-08-25 09:55 | Internal Med Progress Note ---
<Maria Del Carmen Wilson - Last Filed: 08/25/16 14:01> Date of Encounter: 08/25/16 Time of Encounter: 09:35 - Assessment and plan (1) Complicated UTI (urinary tract infection) Current Visit: Yes Status: Acute Assessment and plan: On Unasyn start 08/24/16. day #2 08/12, UCx Enterococcus sensitive to ampicillin, macrobid, vanc 07/16, UCx Klebsiella, Ecoli 08/23/16 No organisms isolated. Consider deescalating to macrobid tomorrow. (2) Elevated troponin Current Visit: Yes Status: Acute Assessment and plan: Likely 2* demand ischemia setting of complicated UTI, CHF exacerbation. Trended down from peak 0.05. (3) CHF exacerbation Current Visit: Yes Status: Acute Assessment and plan: From 07/17/16, Echo EF 40%, moderate LV diastolic dysfunction. Device lead, Mod- severe dilated left atrium, mild-moderate , AR, mod-severe AR HFrEF Evidenced by basilar crackles, mild LE pitting edema. Cont monitor I/O, cardiac diet. Gentle diuresis. SCr appears at baseline 1.4-1.5 Qualifiers: Congestive heart failure type: combined Qualified Code(s): I50.43 - Acute on chronic combined systolic (congestive) and diastolic (congestive) heart failure (4) Hyperkalemia Current Visit: Yes Status: Acute Assessment and plan: On admission 5.1, now resolved. (5) DVT prophylaxis Current Visit: No Status: Acute Assessment and plan: Hep 5000 U SC BID - Subjective Interval history: Patient seen/eval, she affirms no fever, chills, chest pain/pressure/palp/ pause. She is tolerating oral intake without nvd. - Constitutional Vitals: Temp Pulse Resp BP Pulse Ox 98.6 F 96 22 140/86 100 08/25/16 07:05 08/25/16 07:05 08/25/16 07:05 08/25/16 07:05 08/25/16 07:05 General appearance: Present: cooperative, A&O X 2 (Oriented to self, somewhat to place (hospital), believes month is July), no acute distress - Head Head exam: Present: atraumatic, normocephalic - Eye Eye exam: Present: EOMI, sclera anicteric - ENT ENT exam: Present: mucous membranes moist - Neck Neck exam general surgery: Present: trachea midline - Respiratory Respiratory exam: Present: rhonchi (scant). Absent: rales, wheezes - Cardiovascular Cardiovascular exam: Present: +S1, +S2. Absent: JVD - GI/Abdominal GI/Abdominal exam: Present: soft, no peritoneal signs. Absent: tenderness - Extremities Exam Extremities exam: Present: radial pulses palpable and symetrical. Absent: mottling, pedal edema Internal Medicine: Result - Labs CBC & Chem 7: 08/25/16 03:13 08/25/16 03:13 Labs: Short CBC 08/25/16 Range/Units 03:13 WBC 6.3 (4.3-11.1) K/mcL Hgb 9.1 L (11.5-15.4) g/dL Hct 28.7 L (35.3-44.9) % Plt Count 168 (140-400) K/mcL Neutrophils # 5.0 (1.6-8.9) K/mcL BMP 08/25/16 03:13 Sodium 137 Potassium 4.1 D Chloride 111 H Carbon Dioxide 16 L BUN 21 H Creatinine 1.41 H Glucose 225 H Calcium 8.1 L - ABG Interpretation ABG results: PT/INR, D-dimer PT 16.6 Seconds (9.4-12.1) H 08/24/16 05:48 - VTE Documentation of Mechanical Device: Intermittent pneumatic compression device Consult Discharge Plan - Plan Referrals: NO,PCP [Primary Care Provider] - <Carlin Azevedo - Last Filed: 08/25/16 16:10> Date of Encounter: 08/25/16 - Constitutional Vitals: Temp Pulse Resp BP Pulse Ox 98.2 F 93 20 110/85 100 08/25/16 15:03 08/25/16 15:03 08/25/16 15:03 08/25/16 15:03 08/25/16 15:03 Internal Medicine: Result - Labs CBC & Chem 7: 08/25/16 03:13 08/25/16 03:13 Labs: Short CBC 08/25/16 Range/Units 03:13 WBC 6.3 (4.3-11.1) K/mcL Hgb 9.1 L (11.5-15.4) g/dL Hct 28.7 L (35.3-44.9) % Plt Count 168 (140-400) K/mcL Neutrophils # 5.0 (1.6-8.9) K/mcL BMP 08/25/16 03:13 Sodium 137 Potassium 4.1 D Chloride 111 H Carbon Dioxide 16 L BUN 21 H Creatinine 1.41 H Glucose 225 H Calcium 8.1 L - ABG Interpretation ABG results: PT/INR, D-dimer PT 16.6 Seconds (9.4-12.1) H 08/24/16 05:48 - Attending Attestation I examined this patient and my medical decision-making was reviewed with the NURSE ASSISTANT/PA/Advanced Practice Nurse/Resident Physician. I agree with the documented findings, disposition and treatment plan as described except to the extent set forth below. UTI, continue with Unasyn. Possible switch to macrobid. Likely discharge tomorrow to SNF if stable.
[2016-08-25] MEDS ORDERED: Menthol 9.1 MG LOZENGE PO PRN (17:23)
[2016-08-25] MEDS: *HR* Heparin 5,000 UNIT/ML VIAL SQ SCH (17:27)
[2016-08-25] MEDS ORDERED: Insulin DETEMIR 100 UNIT/ML X5UNITS SQ SCH (21:00)
[2016-08-25] MEDS ORDERED: Insulin LISPRO 300 UNITS/3 ML VIAL SQ SCH (21:00)
[2016-08-25] MEDS: Mirtazapine 15 MG TABLET PO SCH (21:31)
[2016-08-26 05:07] LABS: Basophils # 0.1 K/mcL (0.0-0.2); Basophils % 0.9 %; Eosinophils # 0.1 K/mcL (0.0-0.6); Eosinophils % 1.8 %; Hematocrit 30.1 % (35.3-44.9); Hemoglobin 9.4 g/dL (11.5-15.4); Immature Granulocytes % 0.4 % (0-4); Lymphocytes # 0.9 K/mcL (0.6-4.6); Lymphocytes % 16.4 %; Mean Corpuscular HGB Conc 31.2 g/dL (31.6-35.5); Mean Corpuscular Hemoglobin 30.2 pg (28.0-33.3); Mean Corpuscular Volume 96.8 fL (83.0-100.0); Mean Platelet Volume 11.6 fL (9.4-12.4); Monocytes # 0.4 K/mcL (0.0-1.3); Monocytes % 6.7 %; Neutrophils # 4.2 K/mcL (1.6-8.9); Platelet Count 195 K/mcL (140-400); Red Blood Count 3.11 M/mcL (3.82-4.97); Red Cell Distribution Width 16.2 % (11.5-14.5); Segmented Neutrophils % 73.8 %
[2016-08-26 05:13] LABS: Calcium 8.1 mg/dL (8.6-10.8); Magnesium 1.9 mg/dL (1.6-2.6); Potassium 3.8 mEq/L (3.5-4.5)
[2016-08-26] MEDS: Ampicillin/Sulbactam 1,500 MG in 0.9 % Sodium Chloride Mini Bag 100 ML IVPB SCH (05:44)
[2016-08-26] MEDS: *HR* Heparin 5,000 UNIT/ML VIAL SQ SCH (05:44)
[2016-08-26] MEDS ORDERED: Nitrofurantoin (BID) 100 MG CAPSULE PO SCH (08:00)
--- NOTE | 2016-08-26 09:28 | Discharge Summary ---
<Maria Del Carmen Wilson - Last Filed: 08/26/16 13:08> Date of Encounter: 08/26/16 Time of Encounter: 09:00 - Discharge Diagnosis (1) Complicated UTI (urinary tract infection) Priority: Primary Status: Acute (2) Elevated troponin Priority: Secondary Status: Acute (3) CHF exacerbation Priority: Primary Status: Acute Qualifiers: Congestive heart failure type: combined Qualified Code(s): I50.43 - Acute on chronic combined systolic (congestive) and diastolic (congestive) heart failure (4) Hyperkalemia Priority: Secondary Status: Resolved (5) DVT prophylaxis Priority: Secondary Status: Acute - Discharge Medications Prescriptions: OxyCODONE Immed Rel [Roxicodone 5 MG] 10 mg PO Q6HR PRN #24 tablet PRN Reason: Moderate Pain (4-6) Amoxicillin/Clavulanate [Augmentin] 500 mg PO BIDWM #6 tablet Lactobacillus Acidophilus [Acidophilus] 100 mg PO DAILY #30 capsule Home Medications: Aspirin 81 mg PO DAILY 04/26/15 [History] Clopidogrel [Plavix] 75 mg PO DAILY 04/26/15 [History] Spironolactone [Aldactone] 25 mg PO BID 04/26/15 [History] Acetaminophen [Tylenol] 650 mg PO Q6HR PRN 07/16/16 [History] Albuterol Neb [Proventil Neb] 2.5 mg IH Q6H PRN 07/16/16 [History] DiphenhydraMINE [Benadryl] 25 mg PO Q4H PRN 07/16/16 [History] Insulin ASPART [NovoLOG] 0 unit SQ ACHS MDD Sliding Scale 07/16/16 [History] Mirtazapine [Remeron] 15 mg PO HS 07/16/16 [History] Morphine Sulfate 0.25 ml PO Q4H PRN 07/16/16 [History] Nitroglycerin 4.1 gm TL PRN PRN 07/16/16 [History] Oxygen 2 l NS PRN PRN 07/16/16 [History] Prochlorperazine Maleate [Compazine] 10 mg PO Q6H PRN 07/16/16 [History] Scopolamine Patch [Transderm-Scop] 1.5 mg TD Q72H PRN 07/16/16 [History] Sennosides/Docusate Sodium [Senna Plus] 1 each PO BID #60 tablet 07/19/16 [Rx] Docusate Sodium [Dok] 100 mg PO BID PRN 08/12/16 [History] Oxybutynin Chloride [Ditropan Xl] 10 mg PO DAILY 08/12/16 [History] Pantoprazole Sodium [Protonix] 20 mg PO DAILY 08/12/16 [History] LORazepam [Ativan] 0.5 mg PO BID PRN #10 tablet 08/14/16 [Rx] Megestrol Acetate [Megace] 400 mg PO DAILY 60 Days 08/14/16 [Rx] Hydrocodone/Acetaminophen [[place] 5-325 Tablet] 1 tab PO Q6H PRN 08/23/16 [ History] Amoxicillin/Clavulanate [Augmentin] 500 mg PO BIDWM #6 tablet 08/26/16 [Rx] Lactobacillus Acidophilus [Acidophilus] 100 mg PO DAILY #30 capsule 08/26/16 [Rx ] OxyCODONE Immed Rel [Roxicodone 5 MG] 10 mg PO Q6HR PRN #24 tablet 08/26/16 [Rx] Allergies/Adverse Reactions: Allergies No Known Allergies Allergy (Verified 08/12/16 16:29) Date of admission: 08/24/16 17:54 Primary care physician: PCP NO Consults: 08/25/16 16:08 Consult to Senior Net Developer [CONS] Routine Reason for SW Consult: ECF vs Discharging clinician: Carlin Azevedo Anticipated date of discharge: 08/26/16 - Patient Status Disposition: Transfer SNF Condition: Good Functional capacity at discharge: uses cane/walker Overall status at discharge: patient is progressing back to baseline - Discharge Instructions Instructions: Heart Failure (DC), Urinary Tract Infection in Women (DC) Follow Up With: Kermit Shrestha MD [Non-Partnered Physician] - (1-2 weeks, or as scheduled in [facility]) - Diet and Activity Activity: as per physical therapy, increase activity as tolerated, wear oxygen at all times Diet: low salt diet Hospital course: Ms. Carpenter is a 76 year old female, on long-term supp oxygen use, residing in [facility] , indwelling santo. Patient would present to [facility] with chief concern subjective chills, weakness, dysuria. Accompanied by cloudy urine output prompting concern for complicated UTI in setting of indwelling santo catheter. Comorbidities would include: history of urinary incontinence, CKD, CHF, COPD, PA in 2015, CVA in 2015, HTN, HLD, DM, santo in place for approx 5 years. Prior Urine cultures: 08/12, UCx Enterococcus sensitive to ampicillin, macrobid, vanc 07/16, UCx Klebsiella, Ecoli Patient commenced with broad-spectrum antibiotic guided by prior urine cultures. Hospital course: She improved clinically on empiric antibiotic therapy Unasyn. Monitored I/O, to maintain euvolemic status. Hyperkalemia potassium 5.1, addressed with holding spironolactone. Given Ca Gluconate, Lasix, Kayexalate, with resolution. Renal function improved slightly as well. Urine culture did not grow any organisms, possibility of sterile pyuria due to therapies given prior to admission. She reports no dysuria, no leukocytosis, no urinary symptoms. Unable to take macrobid due to renal function. Based on prior culture result sensitive to ampicillin, will discharge on augmentin, cont 3 more days to finish course. Probiotics as supplement. OARRS reviewed and appropriate, single provider Dr. Shrestha. Appropriate for current narcotic regimen to be able to perform ADLs. At time of discharge, patient was clinically improved, hemodynamically stable, progressing to baseline, and agreeable with plan of care. Patient was advised to seek immediate medical attention for any new or worsening symptoms including but not limited to fever, chills, chest pain, chest pressure, dyspnea, cough, abdominal pain, nausea, vomiting, diarrhea, bloody stool, urine and the patient voiced understanding. Patient will follow-up with primary care physician: Kermit Shrestha. - Time Spent with Patient Total time spent providing and/or coordinating discharge services: Greater than 30 minutes - Constitutional Vitals: Temp Pulse Resp BP Pulse Ox 97.3 F L 99 18 159/81 99 08/26/16 06:53 08/26/16 06:53 08/26/16 06:53 08/26/16 06:53 08/26/16 06:53 General appearance: Present: cooperative, A&O X 2 (Oriented to self, somewhat to place (hospital), believes month is July), no acute distress - Head Head exam: Present: atraumatic, normocephalic - Eye Eye exam: Present: EOMI, sclera anicteric - Neck Neck exam general surgery: Present: supple, trachea midline - Respiratory Respiratory exam: Present: CTAB. Absent: tachypnea - Cardiovascular Cardiovascular exam: Present: +S1, +S2. Absent: JVD - GI/Abdominal GI/Abdominal exam: Present: soft, no peritoneal signs. Absent: tenderness - Extremities Exam Extremities exam: Present: warm, radial pulses palpable and symetrical. Absent : pedal edema - VTE Documentation of Mechanical Device: Intermittent pneumatic compression device <Carlin Azevedo - Last Filed: 08/26/16 17:45> Date of Encounter: 08/26/16 Date of admission: 08/24/16 17:54 Primary care physician: PCP NO Consults: 08/25/16 16:08 Consult to Senior Net Developer [CONS] Routine Reason for SW Consult: ECF vs HH Hospital course: Ms. Carpenter is a 76 year old female - Time Spent with Patient Total time spent providing and/or coordinating discharge services: - Constitutional Vitals: Temp Pulse Resp BP Pulse Ox 98.0 F 93 16 125/73 100 08/26/16 16:14 08/26/16 16:14 08/26/16 16:14 08/26/16 16:14 08/26/16 16:14 - Attending Attestation I examined this patient and my medical decision-making was reviewed with the WALLPAPER SCRAPER/PA/Advanced Practice Nurse/Resident Physician. I agree with the documented findings, disposition and treatment plan as described except to the extent set forth below. UTI, will continue therapy with by mouth Augmentin.
[2016-08-26] MEDS: Insulin LISPRO 300 UNITS/3 ML VIAL SQ SCH ×2 (09:52→13:02)
[2016-08-26] MEDS: Megestrol Acetate 400 MG/10 ML UDC PO SCH (10:02)
[2016-08-26] MEDS: Aspirin 81 MG TAB.CHEW PO SCH (10:02)
[2016-08-26] MEDS: Sennosides/Docusate Sodium TABLET PO SCH (10:03)
--- NOTE | 2016-08-26 12:15 | Electrocardiograph Report ---
[facility] Test Date: 2016-08-23 Pat Name: Snow Carpenter Department: 104 Room: 3B12 Gender: F Food Processing Plant Manager: BETTY : 1940 Requested By: Cricket Cristina Order Number: [id number] Reading MD: Srinivas Scott DO Measurements Intervals [place] Rate: 104 P: 60 NH: 152 QRS: 122 QRSD: 87 T: -16 QT: 346 QTc: 406 Interpretive Statements Sinus tachycardia Lateral myocardial infarction, probably old Anteroseptal and inferior ST-T changes nonspecific Electronically Signed On 08-26-16 12:13:59 EST by Srinivas Scott DO
--- NOTE | 2016-08-26 13:08 | Physician Discharge Referral ---
<Maria Del Carmen Wilson - Last Filed: 08/26/16 13:17> ExtendedCare Referral Info Transfer To: [place] Provider in Charge: Roberto Carlos Provider in Charge after Transfer: PCP Institutional Level of Care: Skilled - Diagnosis (1) Complicated UTI (urinary tract infection) Priority: Primary Status: Acute (2) Elevated troponin Priority: Secondary Status: Acute (3) CHF exacerbation Priority: Primary Status: Acute (4) Hyperkalemia Priority: Secondary Status: Resolved (5) DVT prophylaxis Priority: Secondary Status: Acute Prognosis: Fair Aware of Diagnosis: Patient Aware of Prognosis: Patient - Transfer Medications Prescriptions: OxyCODONE Immed Rel [Roxicodone 5 MG] 10 mg PO Q6HR PRN #24 tablet PRN Reason: Moderate Pain (4-6) Amoxicillin/Clavulanate [Augmentin] 500 mg PO BIDWM #6 tablet Lactobacillus Acidophilus [Acidophilus] 100 mg PO DAILY #30 capsule Home Medications: Aspirin 81 mg PO DAILY 04/26/15 [History] Clopidogrel [Plavix] 75 mg PO DAILY 04/26/15 [History] Spironolactone [Aldactone] 25 mg PO BID 04/26/15 [History] Acetaminophen [Tylenol] 650 mg PO Q6HR PRN 07/16/16 [History] Albuterol Neb [Proventil Neb] 2.5 mg IH Q6H PRN 07/16/16 [History] DiphenhydraMINE [Benadryl] 25 mg PO Q4H PRN 07/16/16 [History] Insulin ASPART [NovoLOG] 0 unit SQ ACHS MDD Sliding Scale 07/16/16 [History] Mirtazapine [Remeron] 15 mg PO HS 07/16/16 [History] Morphine Sulfate 0.25 ml PO Q4H PRN 07/16/16 [History] Nitroglycerin 4.1 gm TL PRN PRN 07/16/16 [History] Oxygen 2 l NS PRN PRN 07/16/16 [History] Prochlorperazine Maleate [Compazine] 10 mg PO Q6H PRN 07/16/16 [History] Scopolamine Patch [Transderm-Scop] 1.5 mg TD Q72H PRN 07/16/16 [History] Sennosides/Docusate Sodium [Senna Plus] 1 each PO BID #60 tablet 07/19/16 [Rx] Docusate Sodium [Dok] 100 mg PO BID PRN 08/12/16 [History] Oxybutynin Chloride [Ditropan Xl] 10 mg PO DAILY 08/12/16 [History] Pantoprazole Sodium [Protonix] 20 mg PO DAILY 08/12/16 [History] LORazepam [Ativan] 0.5 mg PO BID PRN #10 tablet 08/14/16 [Rx] Megestrol Acetate [Megace] 400 mg PO DAILY 60 Days 08/14/16 [Rx] Hydrocodone/Acetaminophen [[place] 5-325 Tablet] 1 tab PO Q6H PRN 08/23/16 [ History] Amoxicillin/Clavulanate [Augmentin] 500 mg PO BIDWM #6 tablet 08/26/16 [Rx] Lactobacillus Acidophilus [Acidophilus] 100 mg PO DAILY #30 capsule 08/26/16 [Rx ] OxyCODONE Immed Rel [Roxicodone 5 MG] 10 mg PO Q6HR PRN #24 tablet 08/26/16 [Rx] Allergies/Adverse Reactions: Allergies No Known Allergies Allergy (Verified 08/12/16 16:29) - Respiratory Orders Oxygen / L per min (3) Smoking Cessation: Smoking cessation has been advised. For more information, call the [employer] Line at 9-871-RQFP-NOW. - Advance Directives Living Will: No Power of City Engineer: No Code Status: DNR-Arrest - Mobility Orders Chair, Ambulate - Rehabiliation Orders Rehab Potential: Fair Rehab Orders: ROM Exercises, Evaluation for Physical Therapy, Evaluation for Occupational Therapy - Treatments Skin tear care topically daily PRN per policy - Diet Orders No Concentrated Sweets (diabetic) CERTIFICATION: I certify that the transfer of the above named patient to an Extended Care Facility is necessary for the continuing treatment of the diagnosis listed. The above information is true and accurate reflection of patient's current condition. Confidential - Redisclosure prohibited without a patient's written consent. <Carlin Azevedo - Last Filed: 08/26/16 17:46> - Respiratory Orders Smoking Cessation: Smoking cessation has been advised. For more information, call the [employer] Quit Line at 8-953-NSDV-NOW. CERTIFICATION: I certify that the transfer of the above named patient to an Extended Care Facility is necessary for the continuing treatment of the diagnosis listed. The above information is true and accurate reflection of patient's current condition. Confidential - Redisclosure prohibited without a patient's written consent.
[2016-08-26 16:19] VITALS: BP 125/73
== END 2016-08-26 19:15 | DRG 698 ==
LOC: EMEROO 19:14 → 3BNU 19:14 → SUATTDRO 23:37 → 3BNU 08-24 00:05
PROVIDERS: ADMIT Internal Medicine; ATTEND Internal Medicine

== ENCOUNTER 2016-09-12 15:11 | Inpatient (IN) ==
[2016-09-12 16:21] LABS: Basophils % 0.1 %; Hematocrit 36.9 % (35.3-44.9); Hemoglobin 10.9 g/dL (11.5-15.4); Immature Granulocytes % 0.6 % (0-4); Lymphocytes # 0.4 K/mcL (0.6-4.6); Lymphocytes % 4.7 %; Mean Corpuscular HGB Conc 29.5 g/dL (31.6-35.5); Mean Corpuscular Hemoglobin 28.5 pg (28.0-33.3); Mean Corpuscular Volume 96.3 fL (83.0-100.0); Mean Platelet Volume 11.8 fL (9.4-12.4); Monocytes # 0.6 K/mcL (0.0-1.3); Monocytes % 6.4 %; Platelet Count 161 K/mcL (140-400); Red Blood Count 3.83 M/mcL (3.82-4.97); Red Cell Distribution Width 17.5 % (11.5-14.5); Segmented Neutrophils % 88.2 %
[2016-09-12 16:26] LABS: Prothrombin Time 21.5 Seconds (9.4-12.1)
[2016-09-12 16:28] LABS: Activated Partial Thrombo Time 32.9 Seconds (26.0-36.0)
[2016-09-12 16:38] LABS: Albumin 3.3 g/dL (3.5-5.0); Albumin/Globulin Ratio 0.8 (1.1-2.2); Bilirubin,Total 4.6 mg/dL (0.2-1.2); Calcium 8.5 mg/dL (8.6-10.8); Globulin 4.4 g/dL (2.4-3.5); Total Protein 7.7 g/dL (6.0-8.3)
[2016-09-12 16:58] LABS: Potassium 6.5 mEq/L (3.5-4.5)
[2016-09-12 17:26] LABS: Bilirubin,Urine Large (Negative); Blood,Urine Large (Negative); Clarity,Urine Cloudy (Clear); Glucose,Urine (UA) Normal (Normal); Ketones,Urine Trace mg/dL (Negative); Leukocyte Esterase,Urine Large (Negative); Nitrite,Urine Negative (Negative); Protein,Urine 100 mg/dL (Neg-Trace); Specific Gravity,Urine 1.024 (1.010-1.025)
[2016-09-12 17:31] LABS: Color,Urine Red (Yellow)
--- NOTE | 2016-09-12 17:53 | Venous Imaging Report ---
UE Venous Duplex Patient Name:Snow Carpenter Order Number:[id number] Procedure Date:09/12/2016 Date:1940ge:76 yrs Gender:Female Location:[facility] ED Room #: 26 Grated Cheese Maker:Vanesa Mckeon RVT Referring MD:Manoj Hawkins MD forgeman helper:DO Jorge Roberts MD:Ovi Vasquez MD , FACS Secondary Indications: Risk Factors Yes/No Recent IV therapy ( past 2 weeks) Yes Anticoagulants Yes Impressions: Left upper extremity: normal superficial and deep exam. Right upper extremity: normal contralateral exam. Recommendations: After imaging the patient returned to their room. Test completed on 09/12/2016 at 5:42:18 pm. Critical findings reported to Manoj Hawkins in person at 5:42:24 pm on 09/12/2016 by Vanesa Mckeon RVT. Findings Venous Duplex Results: Right: Venous imaging of the upper extremity reveals full patency and normal vessel compressibility of the right subclavian. Doppler signals in the evaluated veins were normal. Left: Venous imaging of the upper extremity reveals full patency and normal vessel compressibility of the left jugular, left subclavian, left axillary, left brachial, left cephalic, left basilic, left radial and left ulnar. Doppler signals in the evaluated veins were normal. Prior Study: No prior study available for comparison. Updated by Ovi Vasquez MD, FACS on 09/12/2016 5:48:03 PM Ovi Vasquez MD electronically signed on 09/12/2016 5:48:28 PM with status of Final
--- NOTE | 2016-09-12 17:55 | Emergency Department Note ---
Disposition Clinical Impression: Acute kidney injury superimposed on CKD, UTI (urinary tract infection) due to urinary indwelling Del Rosario catheter, Acute on chronic systolic (congestive) heart failure Disposition: Admitted As Inpatient Condition: Good Referrals: Niles Hawley DO [Primary Care Provider] - Forms: ED Satisfaction Letter SOB HPI - General Chief Complaint: ED Shortness of Breath/Dyspnea Stated Complaint: SOB Source: patient, EMS, other Nursing Notes Reviewed: Yes Vital Signs Reviewed: Yes - History of Present Illness Patient presents to complaint of abnormal labs. Per report patient had blood work done yesterday was found to be a bnp 2700. Patient complains shortness of breath that has been weak. There is no reported fevers or chills but there is been reported decrease fluid intake and activity. Patient was seen here recently for congestive heart failure and pneumonia. - Related Data Home Medications Medication Instructions Recorded Confirmed Aspirin 81 mg PO DAILY 04/26/15 09/12/16 Clopidogrel [Plavix] 75 mg PO DAILY 04/26/15 09/12/16 Acetaminophen [Tylenol] 650 mg PO Q6HR PRN 07/16/16 09/12/16 Albuterol Neb [Proventil Neb] 2.5 mg IH Q6H PRN 07/16/16 09/12/16 DiphenhydraMINE [Benadryl] 25 mg PO Q4H PRN 07/16/16 09/12/16 Insulin ASPART [NovoLOG] 0 unit SQ ACHS MDD Sliding Scale 07/16/16 09/12/16 Morphine Sulfate 5 mg PO Q4H PRN 07/16/16 09/12/16 Prochlorperazine Maleate 10 mg PO Q6H PRN 07/16/16 09/12/16 [Compazine] Scopolamine Patch [Transderm-Scop] 1.5 mg TD Q72H PRN 07/16/16 09/12/16 Docusate Sodium [Dok] 100 mg PO BID PRN 08/12/16 09/12/16 Oxybutynin Chloride [Ditropan Xl] 10 mg PO DAILY 08/12/16 09/12/16 Pantoprazole Sodium [Protonix] 20 mg PO DAILY 08/12/16 09/12/16 Hydrocodone/Acetaminophen [[place] 1 tab PO Q6H PRN 08/23/16 09/12/16 5-325 Tablet] Glucagon,Human Recombinant 1 mg IM ONCE PRN 09/12/16 09/12/16 [Glucagen] Mirtazapine [Remeron] 30 mg PO HS 09/12/16 09/12/16 Nitroglycerin 0.4 mg SL Q5MIN PRN 09/12/16 09/12/16 Spironolactone [Aldactone] 50 mg PO BID 09/12/16 09/12/16 Previous Rx's Medication Instructions Recorded Sennosides/Docusate Sodium [Senna 1 each PO BID #60 tablet 07/19/16 Plus] LORazepam [Ativan] 0.5 mg PO BID PRN #10 tablet 08/14/16 Megestrol Acetate [Megace] 400 mg PO DAILY 60 Days 08/14/16 Lactobacillus Acidophilus 100 mg PO DAILY #30 capsule 08/26/16 [Acidophilus] OxyCODONE Immed Rel [Roxicodone 5 10 mg PO Q6HR PRN #24 tablet 08/26/16 MG] Allergies Allergy/AdvReac Type Severity Reaction Status Date / Time No Known Allergies Allergy Verified 08/12/16 16:29 All systems ED: reviewed and negative except as stated. Past Medical History - Past Medical History Source: patient, old records reviewed, other (EMS report) Medical history: Reports: atrial fibrillation, CHF, COPD, coronary artery disease, CVA, diabetes, hyperlipidemia, hypertension, myocardial infarction, osteoporosis Surgical history: Reports: angioplasty/stent, cholecystectomy, hysterectomy Psychiatric history: Reports: depression ELECTRIC POWERLINE EXAMINER history: Reports: no ELECTRIC POWERLINE EXAMINER history - Social History Smoking Status: Never smoker Smokeless Tobacco Status: No Alcohol use: Reports: none Drug use: Reports: none Physical Exam - General General appearance: alert - Head Head exam: atraumatic, normocephalic, normal inspection - Eye Eye exam: Present: normal appearance, PERRL, EOMI - ENT ENT exam: normal exam, normal oropharynx, mucous membranes moist - Neck Neck exam: Present: normal inspection, full ROM, trachea midline - Chest Chest inspection: Present: normal inspection, symmetric chest wall rise - Respiratory Respiratory exam: Present: wheezes, prolonged expiratory phase - Cardiovascular Cardiovascular exam: Present: regular rate, normal rhythm, normal heart sounds - Abdominal Exam Abdominal exam: Present: soft, Non-Tender. Absent: tenderness, distention, guarding, rebound, rigidity - Extremities Exam Extremities exam: Present: normal inspection, full ROM. Absent: tenderness, pedal edema - Back Exam Back exam: Present: normal inspection, full ROM. Absent: tenderness - Neurological Exam Neurological exam: Present: alert, oriented X3 - Psychiatric Psychiatric exam: Present: normal affect, normal mood - Skin Skin exam: Present: warm, dry, intact, normal color Course Vital Signs Temperature 97.4 F L 09/12/16 15:14 Pulse Rate 86 09/12/16 15:14 Respiratory Rate 16 09/12/16 15:14 Blood Pressure 125/76 09/12/16 15:14 O2 Sat by Pulse Oximetry 98 09/12/16 15:14 Temperature 97.4 F L 09/12/16 15:14 Pulse Rate 80 09/12/16 18:44 Respiratory Rate 16 09/12/16 16:52 Blood Pressure 112/70 09/12/16 18:44 O2 Sat by Pulse Oximetry 98 09/12/16 18:44 Oxygen Delivery Oxygen Delivery Room Air Shortness of Breath/Dyspnea - Differential Diagnosis Likely: acute exacerbation of chronic obstructive airways disease, congestive heart failure, pneumonia, pulmonary embolism, pneumothorax - Lab Data Lab results reviewed: Yes I reviewed the patient's lab results. Result diagrams: 09/12/16 16:12 09/12/16 16:12 Lab Results 09/12/16 09/12/16 09/12/16 Range/Units 16:12 16:12 16:12 WBC 9.0 (4.3-11.1) K/mcL RBC 3.83 (3.82-4.97) M/mcL Hgb 10.9 L (11.5-15.4) g/dL Hct 36.9 (35.3-44.9) % MCV 96.3 (83.0-100.0) fL MCH 28.5 (28.0-33.3) pg MCHC 29.5 L (31.6-35.5) g/dL RDW 17.5 H (11.5-14.5) % Plt Count 161 (140-400) K/mcL MPV 11.8 (9.4-12.4) fL Immature Gran % 0.6 (0-4) % Seg Neutrophils % 88.2 % Lymphocytes % 4.7 % Monocytes % 6.4 % Eosinophils % 0.0 % Basophils % 0.1 % Neutrophils # 8.0 (1.6-8.9) K/mcL Lymphocytes # 0.4 L (0.6-4.6) K/mcL Monocytes # 0.6 (0.0-1.3) K/mcL Eosinophils # 0.0 (0.0-0.6) K/mcL Basophils # 0.0 (0.0-0.2) K/mcL PT 21.5 H (9.4-12.1) Seconds INR 2.0 APTT 32.9 (26.0-36.0) Seconds Sodium 131 L (136-145) mEq/L Potassium 6.5 H* (3.5-4.5) mEq/L Chloride 104 (98-109) mEq/L Carbon Dioxide 12 L (19-29) mEq/L BUN 71 H (7-20) mg/dL Creatinine 2.76 H (0.57-1.11) mg/dL Est GFR ( Amer) 20 L (> 60) Est GFR (Non-Af Amer) 17 L (> 60) BUN/Creatinine Ratio 26 (6-26) Glucose 182 H (70-99) mg/dL Calculated Osmolality 297 (280-300) Lactic Acid (0.5-2.2) mmol/L Calcium 8.5 L (8.6-10.8) mg/dL Total Bilirubin 4.6 H (0.2-1.2) mg/dL AST 106 H (5-34) Units/L ALT 139 H (0-55) Units/L Alkaline Phosphatase 282 H (38-126) Units/L Troponin I (0-0.03) ng/mL B-Natriuretic Peptide (0-100) pg/mL Serum Total Protein 7.7 (6.0-8.3) g/dL Albumin 3.3 L (3.5-5.0) g/dL Globulin 4.4 H (2.4-3.5) g/dL Albumin/Globulin Ratio 0.8 L (1.1-2.2) Ur Specimen Adequacy Urine Color (Yellow) Urine Clarity (Clear) Urine pH (5.0-8.0) pH Units Ur Specific [place] (1.010-1.025) Urine Protein (Neg-Trace) mg/dL Urine Glucose (UA) (Normal) mg/dL Urine Ketones (Negative) mg/dL Urine Blood (Negative) Urine Nitrite (Negative) Urine Bilirubin (Negative) Urine Urobilinogen (Normal) mg/dL Ur Leukocyte Esterase (Negative) Ur Culture Indicated? (NO) 09/12/16 09/12/16 09/12/16 Range/Units 16:12 16:12 16:12 WBC (4.3-11.1) K/mcL RBC (3.82-4.97) M/mcL Hgb (11.5-15.4) g/dL Hct (35.3-44.9) % MCV (83.0-100.0) fL MCH (28.0-33.3) pg MCHC (31.6-35.5) g/dL RDW (11.5-14.5) % Plt Count (140-400) K/mcL MPV (9.4-12.4) fL Immature Gran % (0-4) % Seg Neutrophils % % Lymphocytes % % Monocytes % % Eosinophils % % Basophils % % Neutrophils # (1.6-8.9) K/mcL Lymphocytes # (0.6-4.6) K/mcL Monocytes # (0.0-1.3) K/mcL Eosinophils # (0.0-0.6) K/mcL Basophils # (0.0-0.2) K/mcL PT (9.4-12.1) Seconds INR APTT (26.0-36.0) Seconds Sodium (136-145) mEq/L Potassium (3.5-4.5) mEq/L Chloride (98-109) mEq/L Carbon Dioxide (19-29) mEq/L BUN (7-20) mg/dL Creatinine (0.57-1.11) mg/dL Est GFR ( Amer) (> 60) Est GFR (Non-Af Amer) (> 60) BUN/Creatinine Ratio (6-26) Glucose (70-99) mg/dL Calculated Osmolality (280-300) Lactic Acid 3.0 H (0.5-2.2) mmol/L Calcium (8.6-10.8) mg/dL Total Bilirubin (0.2-1.2) mg/dL AST (5-34) Units/L ALT (0-55) Units/L Alkaline Phosphatase (38-126) Units/L Troponin I 0.09 H* (0-0.03) ng/mL B-Natriuretic Peptide 3061 H (0-100) pg/mL Serum Total Protein (6.0-8.3) g/dL Albumin (3.5-5.0) g/dL Globulin (2.4-3.5) g/dL Albumin/Globulin Ratio (1.1-2.2) Ur Specimen Adequacy Urine Color (Yellow) Urine Clarity (Clear) Urine pH (5.0-8.0) pH Units Ur Specific [place] (1.010-1.025) Urine Protein (Neg-Trace) mg/dL Urine Glucose (UA) (Normal) mg/dL Urine Ketones (Negative) mg/dL Urine Blood (Negative) Urine Nitrite (Negative) Urine Bilirubin (Negative) Urine Urobilinogen (Normal) mg/dL Ur Leukocyte Esterase (Negative) Ur Culture Indicated? (NO) 09/12/16 Range/Units 17:07 WBC (4.3-11.1) K/mcL RBC (3.82-4.97) M/mcL Hgb (11.5-15.4) g/dL Hct (35.3-44.9) % MCV (83.0-100.0) fL MCH (28.0-33.3) pg MCHC (31.6-35.5) g/dL RDW (11.5-14.5) % Plt Count (140-400) K/mcL MPV (9.4-12.4) fL Immature Gran % (0-4) % Seg Neutrophils % % Lymphocytes % % Monocytes % % Eosinophils % % Basophils % % Neutrophils # (1.6-8.9) K/mcL Lymphocytes # (0.6-4.6) K/mcL Monocytes # (0.0-1.3) K/mcL Eosinophils # (0.0-0.6) K/mcL Basophils # (0.0-0.2) K/mcL PT (9.4-12.1) Seconds INR APTT (26.0-36.0) Seconds Sodium (136-145) mEq/L Potassium (3.5-4.5) mEq/L Chloride (98-109) mEq/L Carbon Dioxide (19-29) mEq/L BUN (7-20) mg/dL Creatinine (0.57-1.11) mg/dL Est GFR ( Amer) (> 60) Est GFR (Non-Af Amer) (> 60) BUN/Creatinine Ratio (6-26) Glucose (70-99) mg/dL Calculated Osmolality (280-300) Lactic Acid (0.5-2.2) mmol/L Calcium (8.6-10.8) mg/dL Total Bilirubin (0.2-1.2) mg/dL AST (5-34) Units/L ALT (0-55) Units/L Alkaline Phosphatase (38-126) Units/L Troponin I (0-0.03) ng/mL B-Natriuretic Peptide (0-100) pg/mL Serum Total Protein (6.0-8.3) g/dL Albumin (3.5-5.0) g/dL Globulin (2.4-3.5) g/dL Albumin/Globulin Ratio (1.1-2.2) Ur Specimen Adequacy See below A Urine Color Red A (Yellow) Urine Clarity Cloudy A (Clear) Urine pH 5.0 (5.0-8.0) pH Units Ur Specific [place] 1.024 (1.010-1.025) Urine Protein 100 H (Neg-Trace) mg/dL Urine Glucose (UA) Normal (Normal) mg/dL Urine Ketones Trace H (Negative) mg/dL Urine Blood Large H (Negative) Urine Nitrite Negative (Negative) Urine Bilirubin Large H (Negative) Urine Urobilinogen 2.0 H (Normal) mg/dL Ur Leukocyte Esterase Large H (Negative) Ur Culture Indicated? YES A (NO) - Radiology Data Radiology results reviewed: Yes I reviewed the patient's radiology results. Chest X-Ray 09/12/16 15:14 IMPRESSION: Pulmonary edema has resolved, compared with 08/25/2016. Cardiomegaly and ICD are noted. D/ / Chad Faulkner MD / Chad Faulkner MD Interpreting Provider: Cahd Faulkner MD Head CT 09/12/16 15:29 IMPRESSION: 1. No acute intracranial abnormality. 2. Diffuse parenchymal volume loss and moderate chronic white matter microvascular ischemic changes. D/ / Dev Rios MD / Dev Rios MD Interpreting Provider: Dev Rios MD - EKG Data EKG attestation: Yes I reviewed and interpreted this EKG. EKG shows normal: Reports: sinus rhythm Rate: Reports: normal Rhythm: Reports: NSR Critical Care Time Total Critical Care Time: 60 Attestation: Critical care performed: Time is exclusive of separately billable procedures. Time includes: direct patient care, patient reassessment, coordination of patient care, interpretation of data (laboratory data, radiology data, and respiratory data), review of patient's medical records, medical consultation and documentation of patient care. Procedures included in critical care time: Procedures excluded from critical care time:
[2016-09-12] MEDS ORDERED: 0.9 % Sodium Chloride 1,000 ML IV ONE (18:31)
[2016-09-12] MEDS ORDERED: Furosemide 20 MG/2 ML VIAL IVP ONE (18:48)
[2016-09-12] MEDS ORDERED: Albuterol 2.5 MG/3 ML NEBULIZER IH STA (19:55)
[2016-09-12] MEDS ORDERED: Calcium Gluconate 1,000 MG in D5% in Water 100 ML IVPB STA (19:59)
[2016-09-12] MEDS ORDERED: Acetaminophen 325 MG TABLET PO PRN (20:53)
[2016-09-12] MEDS ORDERED: Naloxone 0.4 MG/ML INJ IVP PRN (20:53)
[2016-09-12] MEDS ORDERED: Ondansetron 4 MG/2 ML VIAL IVP PRN (20:53)
[2016-09-12] MEDS ORDERED: Scopolamine Patch 1.5 MG PATCH.TD72 TD PRN (20:58)
[2016-09-12] MEDS ORDERED: Albuterol 2.5 MG/3 ML NEBULIZER IH PRN (20:58)
[2016-09-12] MEDS ORDERED: Nitroglycerin 0.4 MG TAB.SUBL SL PRN (20:58)
[2016-09-12] MEDS ORDERED: *HR* LORazepam 0.5 MG TABLET PO PRN (20:58)
[2016-09-12] MEDS ORDERED: *HR* HYDROcodone/Acet 5/325 mg TABLET PO PRN (20:58)
[2016-09-12] MEDS ORDERED: D5% in Water 1,000 ML IV PRN (21:11)
[2016-09-12] MEDS ORDERED: *HR* Dextrose 50 % in Water (Syg) 50 ML SYRINGE IVP PRN (21:11)
[2016-09-12] MEDS ORDERED: Dextrose Gel 15 GM PO PRN ×2 (21:11)
--- NOTE | 2016-09-12 21:16 | Internal Med History&Physical ---
<Matthew Go - Last Filed: 09/12/16 23:23> Date of Encounter: 09/12/16 Time of Encounter: 20:00 Assessment and Plan (1) Hyperkalemia Current visit: No Status: Resolved Upon arrival to the ED, patient had potassium of 6.5. Etiology likely multifactorial- spironolactone and renal failure most likely causes. EKG reviewed-no T wave changes noted. Kayexalate, calcium gluconate, albuterol neb, sodium bicarb given. Repeat potassium was 5.7. Holding home med spironolactone. Patient is currently stable-Continue to monitor. (2) Shortness of breath Current visit: Yes Status: Acute Etiology likely due to acute CHF. See below for plan. (3) CHF exacerbation Current visit: No Status: Acute Patietn has known Hx of CHF. Last echo from 07/17/16 showed LVEF 40% with mild-moderate LV systolic dysfunction with global hypokinesis and moderate LV diastolic dysfunction. Upon examination, patient had expiratory wheezing, crackles, mild JVD noted, +2 lower extremity pitting edema. This is likely the cause of her shortness of breath. 20mg IV lasix given in ED, with another 40mg IV lasix. Continue to monitor urine output. Strict I/O. Patient will need follow up with PCP after discharge. May require intermediate diuresis. Qualifiers: Congestive heart failure type: combined Qualified Code(s): I50.43 - Acute on chronic combined systolic (congestive) and diastolic (congestive) heart failure (4) Acute kidney injury superimposed on CKD Current visit: Yes Status: Acute Cr was 2.76 upon admission. Baseline Cr around 1.5 Patient has underlying CKD with GFR of 17. Continue to monitor. (5) Altered mental status Current visit: No Status: Acute during physical exam, patient was oriented to person only. She appeared very confused, and was unable to answer questions appropriately. Unsure whether or not this is different from her baseline function. Patient did not have any family in the room. Continue to monitor, day/night reorientation as needed. Qualifiers: Altered mental status type: transient alteration of awareness Qualified Code(s): R40.4 - Transient alteration of awareness (6) Chronic atrial fibrillation Current visit: No Status: Chronic Rate controlled. Patient is no on any buttermaker continuous churn anticoagulation for Afib. Continue to monitor. (7) Diabetes mellitus Current visit: No Status: Chronic patient's home med list does not list basal insulin. Medium dose sliding scale insulin with ACHS accuchecks. Qualifiers: Diabetes mellitus type: type 2 Diabetes mellitus complication status: with kidney complications Diabetes mellitus complication detail: with chronic kidney disease Diabetes mellitus intermediate insulin use: with intermediate use Chronic kidney disease stage: stage 3 (moderate) Qualified Code(s): E11.22 - Type 2 diabetes mellitus with diabetic chronic kidney disease; N18.3 - Chronic kidney disease, stage 3 (moderate); Z79.4 - assisted (current) use of insulin (8) ICD (implantable cardioverter-defibrillator) in place Current visit: No Status: Chronic (9) DVT prophylaxis Current visit: No Status: Acute heparin 5,000 units SQ Q8HR Internal Medicine - H&P: HPI Chief complaint: shortness of breath Admitted From: Home Plans for Post Hospital Care: Home History of present illness: PCP: Kermit Shrestha Ms. Carpenter is a 76 year old female with PMHx of CHF, renal failure, Afib, COPD ( on 2L home oxygen at night) CAD, defibrillator in place, Hx of CVA, diabetes, HLD, HTN, Hx of LA, osteoporosis. Patient was recently admitted to the hospital on 08/24/15 for UTI, increased weakness and fatigue. She also has a prior admission on 08/13 for UTI as well. Past urine cultures have grown E.Coli, Klebsiella oxytoca, and klebsiella pneumoniae. Patient is a very poor historian. She can answer some questions, but often stares off and does not answer questions. She did not have any family at bedside with her upon arriving to the floor from the ED. History gathered from the patient was very minimal. She states she came to the ED with CC of shortness of breath. Records from nurse indicate that she was admitted from [facility] in [place] (phone: [phone]-tried calling but nobody was able to discuss patient's history due to an emergency going on there) . She was unable to tell me when her SOB started. She denies shortness of breath during questioning- she was on 2L nasal canula at that time. She denies chest pain, hematuria, denies blood in urine or stool, denies cough, hemoptysis. She denies being in any pain. Social Hx: Not a current smoker and reports no hx of smoking. Past Med Surg Social Fam HX - Past Medical History Medical history: atrial fibrillation, CHF, COPD, coronary artery disease, CVA, diabetes, hyperlipidemia, hypertension, myocardial infarction, osteoporosis Psychiatric history: depression - Past Surgical History Surgical History: angioplasty/stent, cholecystectomy, hysterectomy - Social History Smoking Status: Never smoker Smokeless Tobacco Status: No Alcohol use: none Drug use: none - Family History Mother Living Status: Hx Family Cardiac Disorders: Yes Hx Family Respiratory Disorders: No Father Living Status: Hx Family Cardiac Disorders: Yes Hx Family Respiratory Disorders: No Hx Family Cancer: Yes (stomach) Internal Medicine - H&P: Meds Aspirin 81 mg PO DAILY 04/26/15 [History] Clopidogrel [Plavix] 75 mg PO DAILY 04/26/15 [History] Acetaminophen [Tylenol] 650 mg PO Q6HR PRN 07/16/16 [History] Albuterol Neb [Proventil Neb] 2.5 mg IH Q6H PRN 07/16/16 [History] DiphenhydraMINE [Benadryl] 25 mg PO Q4H PRN 07/16/16 [History] Insulin ASPART [NovoLOG] 0 unit SQ ACHS MDD Sliding Scale 07/16/16 [History] Morphine Sulfate 5 mg PO Q4H PRN 07/16/16 [History] Prochlorperazine Maleate [Compazine] 10 mg PO Q6H PRN 07/16/16 [History] Scopolamine Patch [Transderm-Scop] 1.5 mg TD Q72H PRN 07/16/16 [History] Sennosides/Docusate Sodium [Senna Plus] 1 each PO BID #60 tablet 07/19/16 [Rx] Docusate Sodium [Dok] 100 mg PO BID PRN 08/12/16 [History] Oxybutynin Chloride [Ditropan Xl] 10 mg PO DAILY 08/12/16 [History] Pantoprazole Sodium [Protonix] 20 mg PO DAILY 08/12/16 [History] LORazepam [Ativan] 0.5 mg PO BID PRN #10 tablet 08/14/16 [Rx] Megestrol Acetate [Megace] 400 mg PO DAILY 60 Days 08/14/16 [Rx] Hydrocodone/Acetaminophen [[place] 5-325 Tablet] 1 tab PO Q6H PRN 08/23/16 [ History] Lactobacillus Acidophilus [Acidophilus] 100 mg PO DAILY #30 capsule 08/26/16 [Rx ] OxyCODONE Immed Rel [Roxicodone 5 MG] 10 mg PO Q6HR PRN #24 tablet 08/26/16 [Rx] Glucagon,Human Recombinant [Glucagen] 1 mg IM ONCE PRN 09/12/16 [History] Mirtazapine [Remeron] 30 mg PO HS 09/12/16 [History] Nitroglycerin 0.4 mg SL Q5MIN PRN 09/12/16 [History] Spironolactone [Aldactone] 50 mg PO BID 09/12/16 [History] Allergies No Known Allergies Allergy (Verified 08/12/16 16:29) ROS unobtainable: due to mental status All Systems PM: A 10-system review of systems was performed and is negative for pertinent findings except as documented above in the HPI. - Constitutional Vitals: Temp Pulse Resp BP Pulse Ox 97.7 F 86 17 125/81 92 L 09/12/16 20:32 09/12/16 20:32 09/12/16 20:32 09/12/16 20:32 09/12/16 20:32 General appearance: Present: A&O X 1, mild distress. Absent: answers questions appropriately - Head Head exam: Present: atraumatic, normocephalic - Eye Eye exam: Present: PERRL, sclera anicteric. Absent: scleral icterus - Neck Neck exam general surgery: Present: supple, trachea midline Additional comments: mild jvd noted. - Respiratory Respiratory exam: Present: rales, rhonchi, wheezes (expiratory wheezing present. ) Additional comments: decreased breath sounds on right upper lobe. Mildly labored breathing noted on 2L nasal canula. - Cardiovascular Cardiovascular exam: Present: irregular rhythm, systolic murmur - GI/Abdominal GI/Abdominal exam: Present: normal bowel sounds, soft, tenderness Additional comments: umbilical hernia present. - Extremities Exam Extremities exam: Present: pedal edema (+1 pitting edema on lower extremities bilaterally. ), tenderness (tenderness on squeezing lower legs bilaterally. ). Absent: cyanotic - Neurological Exam Neurological exam: Present: alert (alert, oriented to person only. Diminished motor strength. Patient has a hard time moving, likely due to weakness. ) - Psychiatric Psychiatric exam: Present: flat affect. Absent: anxious Internal Med - H&P Results - Labs CBC & Chem 7: 09/12/16 16:12 09/12/16 22:14 <Ricky Marshall Kodi - Last Filed: 09/13/16 00:39> Date of Encounter: 09/12/16 Internal Medicine - H&P: HPI History of present illness: Ms. Carpenter is a 76 year old female All Systems PM: A 10-system review of systems was performed and is negative for pertinent findings except as documented above in the HPI. - Constitutional Vitals: Temp Pulse Resp BP Pulse Ox 97.7 F 86 20 125/81 100 09/12/16 20:32 09/12/16 20:32 09/12/16 21:08 09/12/16 20:32 09/12/16 21:08 Internal Med - H&P Results - Labs CBC & Chem 7: 09/12/16 16:12 09/12/16 22:14 Labs: BMP 09/12/16 22:14 Sodium 135 L Potassium 5.7 H Chloride 105 Carbon Dioxide 13 L BUN 71 H Creatinine 2.76 H Glucose 232 H Calcium 8.6 - Attending Attestation I examined this patient and my medical decision-making was reviewed with the PRICE LISTER/PA/Advanced Practice Nurse/Resident Physician. I agree with the documented findings, disposition and treatment plan as described except to the extent set forth below. I have personally evaluated the pt and discussed the details with Industrial Rehabilitation Consultant/ Resident. Pt admitted with shortness of breath at rest. She denies orthopnea. She has some cough but no significant expectoration. Pt has: Acute exacerbation of CHF: IV lasix; echo Hyperkalemia: Likely due to CKD / ESTEFANY + spironolactone. D/C spironolactone. Given calcium gluconate; IV sod bicarb; albuterol neb; kayexalate. Repeat K is improved. DM: sliding scale insulin CKD/ESTEFANY: possibly contributing to volume overload. Monitor renal function. Possible UTI: Pt has chronic indwelling satno. urine cultures pending. start ceftriaxone
[2016-09-12 22:30] LABS: Calcium 8.6 mg/dL (8.6-10.8); Potassium 5.7 mEq/L (3.5-4.5)
[2016-09-12] MEDS: *HR* Heparin 5,000 UNIT/ML VIAL SQ SCH (22:35)
[2016-09-12] MEDS: Mirtazapine 15 MG TABLET PO SCH (22:36)
[2016-09-12] MEDS: Sennosides/Docusate Sodium TABLET PO SCH (22:36)
[2016-09-12] MEDS: Insulin LISPRO 300 UNITS/3 ML VIAL SQ SCH (23:38)
[2016-09-12] MEDS ORDERED: Furosemide 40 MG/4 ML VIAL IVP ONE (23:51)
[2016-09-13 06:17] LABS: Basophils % 0.1 %; Eosinophils # 0.1 K/mcL (0.0-0.6); Eosinophils % 0.9 %; Hematocrit 34.8 % (35.3-44.9); Hemoglobin 10.5 g/dL (11.5-15.4); Immature Granulocytes % 0.4 % (0-4); Lymphocytes # 0.6 K/mcL (0.6-4.6); Lymphocytes % 8.3 %; Mean Corpuscular HGB Conc 30.2 g/dL (31.6-35.5); Mean Corpuscular Hemoglobin 28.5 pg (28.0-33.3); Mean Corpuscular Volume 94.6 fL (83.0-100.0); Mean Platelet Volume 12.3 fL (9.4-12.4); Monocytes # 0.5 K/mcL (0.0-1.3); Monocytes % 7.4 %; Neutrophils # 5.6 K/mcL (1.6-8.9); Platelet Count 136 K/mcL (140-400); Red Blood Count 3.68 M/mcL (3.82-4.97); Red Cell Distribution Width 17.8 % (11.5-14.5); Segmented Neutrophils % 82.9 %
[2016-09-13] MEDS: *HR* Heparin 5,000 UNIT/ML VIAL SQ SCH ×3 (06:17→23:18)
[2016-09-13] MEDS ORDERED: Pantoprazole 40 MG VIAL IVP SCH (06:30)
[2016-09-13 06:33] LABS: Calcium 8.4 mg/dL (8.6-10.8); Magnesium 2.3 mg/dL (1.6-2.6); Phosphorous 4.6 mg/dL (2.3-4.7)
[2016-09-13] MEDS: Aspirin 81 MG TAB.CHEW PO SCH (08:42)
[2016-09-13] MEDS: Insulin LISPRO 300 UNITS/3 ML VIAL SQ SCH ×4 (08:42→20:23)
[2016-09-13] MEDS: Lactobacillus 1 EACH CAP.SPRINK PO SCH (08:42)
[2016-09-13] MEDS: Furosemide 40 MG/4 ML VIAL IVP SCH (08:42)
[2016-09-13] MEDS: Megestrol Acetate 400 MG/10 ML UDC PO SCH (08:43)
[2016-09-13] MEDS: Sennosides/Docusate Sodium TABLET PO SCH ×2 (08:43→20:21)
[2016-09-13] MEDS ORDERED: *HR* HYDROcodone/Acet 5/325 mg TABLET PO PRN (11:37)
--- NOTE | 2016-09-13 15:57 | Internal Med Progress Note ---
Date of Encounter: 09/13/16 Time of Encounter: 10:50 - Assessment and plan (1) Hyperkalemia Current Visit: Yes Status: Acute Assessment and plan: Improving Etiology likely multifactorial- spironolactone and renal failure most likely causes. EKG reviewed-no T wave changes noted. K today 5.0 Gave kayexalate, will monitor Continue to hold spironolactone Continuous cardiac monitoring (2) Acute kidney injury superimposed on CKD Current Visit: Yes Status: Acute Assessment and plan: Possibly cardio-renal With associated metabolic acidosis and hyperkalemia Received IV sodium bicarb for hyperkalemia treatment Will start on po bicarb Consult renal (3) Acute on chronic systolic (congestive) heart failure Current Visit: Yes Status: Acute Assessment and plan: Patient with combined CHF EF 40% and moderate LVDD Continue 40mg IV lasix daily Continue to monitor urine output. Strict I/O. Fluid restriction to 1500cc (4) UTI (urinary tract infection) due to urinary indwelling Del Rosario catheter Current Visit: Yes Status: Acute Assessment and plan: Recurrent Suspected Urine is possibly from sterile pyuria or contaminants Had been started on ceftriaxone, will continue Follow blood and urine cultures Will escalate/de-escalate based on same Qualifiers: Indwelling urinary catheter type: indwelling urethral catheter Encounter type: subsequent encounter Qualified Code(s): T83.511D - Infection and inflammatory reaction due to indwelling urethral catheter, subsequent encounter ; N39.0 - Urinary tract infection, site not specified (5) Elevated troponin Current Visit: Yes Status: Chronic Assessment and plan: Chronic, stable, possibly from ESRD (6) Metabolic acidosis with normal anion gap and bicarbonate losses Current Visit: Yes Status: Acute Assessment and plan: Acute on chronic from ESTEFANY on CKD Continue po bicarb Monitor closely (7) Age-related physical debility Current Visit: Yes Status: Acute Assessment and plan: Resident of SNF Fall precautions IN-pt physical therapy as tolerated (8) CAD (coronary artery disease), [place] coronary artery Current Visit: No Status: Chronic Qualifiers: [place] vs. transplanted heart: [place] heart Associated angina: angina presence unspecified Qualified Code(s): I25.10 - Atherosclerotic heart disease of [place] coronary artery without angina pectoris (9) Chronic atrial fibrillation Current Visit: No Status: Chronic (10) Diabetes mellitus Current Visit: No Status: Chronic Qualifiers: Diabetes mellitus type: type 2 Diabetes mellitus complication status: with kidney complications Diabetes mellitus complication detail: with chronic kidney disease Diabetes mellitus middle or intermediate school principal insulin use: with middle or intermediate school principal use Chronic kidney disease stage: stage 3 (moderate) Qualified Code(s): E11.22 - Type 2 diabetes mellitus with diabetic chronic kidney disease; N18.3 - Chronic kidney disease, stage 3 (moderate); Z79.4 - exterminator helper (current) use of insulin (11) ICD (implantable cardioverter-defibrillator) in place Current Visit: No Status: Chronic - Subjective Interval history: 76 Y/O F with Chronic hypoxic respiratry failure secondary to COPD, on home o2, CHFrEF with EF 40% ( and moderate diastolic dysfunction), Afib s/p AICD on coumadin, HLD, CAD, DM, CKD, s/p CVA, Dementia, Chronic indwelling Del Rosario catheter She is admitted and being managed for acute on chronic kidney disease, possibly cardiorenal, Hyperkalemia, suspected UTI and CHF exacerbation She is seen at bedside with no new complains Patient also has dementia and I confirmed from family that she is confused at baseline, oriented to person only Of note, she has had multiple admissions and readmissions for several reasons, recently discharged this month for management of UTI, she possibly has sterile pyuria She was sent to the ER from facility for abnormal abs which included but not limited to BNP 2700 and complains shortness of breath Work up here revealed Head CT with no acute changes, Hyperkalemia with K >6, no EKG changes, CXR with cardiomegaly and no infiltrates, BNP 3091, ESTEFANY on CKD She has been started on therapy for CHF exacerbation ESTEFANY is possibly cardio-renal and may improve with diuresis Hyperkalemia possibly secondary to ESTEFANY, spironolactone held - Constitutional Vitals: Temp Pulse Resp BP Pulse Ox 97.7 F 81 16 92/48 100 09/13/16 11:19 09/13/16 11:19 09/13/16 11:19 09/13/16 11:19 09/13/16 11:19 General appearance: Present: A&O X 1, pleasant, no acute distress. Absent: answers questions appropriately - Head Head exam: Present: atraumatic - Eye Eye exam: Present: PERRL, conjuntiva pink, sclera anicteric - ENT ENT exam: Present: mucous membranes dry - Neck Neck exam general surgery: Present: supple, trachea midline. Absent: lymphadenopathy - Respiratory Respiratory exam: Present: CTAB. Absent: accessory muscle use, rales, rhonchi, wheezes - Cardiovascular Cardiovascular exam: Present: RRR, +S1, +S2, systolic murmur. Absent: JVD - GI/Abdominal GI/Abdominal exam: Present: normal bowel sounds, soft, no peritoneal signs. Absent: guarding, tenderness - Extremities Exam Extremities exam: Present: pedal edema (2+ pedal edema up to the knees) - Neurological Exam Neurological exam: Present: alert. Absent: pronater drift, facial droop, speech deficit - Skin Skin exam: Present: dry Internal Medicine: Result - Labs CBC & Chem 7: 09/13/16 06:05 09/13/16 06:05 Labs: Short CBC 09/13/16 Range/Units 06:05 WBC 6.8 (4.3-11.1) K/mcL Hgb 10.5 L (11.5-15.4) g/dL Hct 34.8 L (35.3-44.9) % Plt Count 136 L (140-400) K/mcL Neutrophils # 5.6 (1.6-8.9) K/mcL BMP 09/13/16 06:05 Sodium 134 L Potassium 5.0 H Chloride 105 Carbon Dioxide 14 L BUN 69 H Creatinine 2.63 H Glucose 175 H Calcium 8.4 L - ABG Interpretation ABG results: PT/INR, D-dimer PT 21.5 Seconds (9.4-12.1) H 09/12/16 16:12 Consult Discharge Plan - Plan Referrals: Niles Hawley DO [Primary Care Provider] -
--- NOTE | 2016-09-13 16:22 | Electrocardiograph Report ---
[facility] Test Date: 2016-09-12 Pat Name: Snow Carpenter Department: [id number] Room: 2A32 Gender: F Air Drier: [facility] : 1940 Requested By: Manoj Hawkins Order Number: [id number] Reading MD: Srinivas Scott DO Measurements Intervals [place] Rate: 83 P: 50 HI: 192 QRS: 152 QRSD: 105 T: 27 QT: 382 QTc: 422 Interpretive Statements SINUS RHYTHM LATERAL MYOCARDIAL INFARCTION, OF INDETERMINATE AGE NONSPECIFIC ST-T CHANGES Electronically Signed On 09-13-16 16:19:03 EST by Srinivas Scott DO
[2016-09-13] MEDS: Mirtazapine 15 MG TABLET PO SCH (20:21)
[2016-09-13 22:00] LABS: ABG Base Excess -3.7 mEq/L (-2.0 to 3.0); ABG HCO3 18.3 mEQ/L (21-27); ABG Oxygen Saturation 100 % (95-98); ABG PCO2 24 mmHg (35-45); ABG PH 7.49 pH Units (7.32-7.45); ABG PO2 339 mmHg (85-104)
[2016-09-13 22:01] LABS: Blood Gas FiO2 100 %
[2016-09-13] MEDS ORDERED: Furosemide 40 MG/4 ML VIAL IVP ONE (22:40)
--- NOTE | 2016-09-13 23:09 | Event Note ---
Date of Encounter: 09/13/16 Time of Encounter: 22:00 On-call hospitalist note: RN is me with concern that the patient's oxygen saturations are low. Pt apparently had oxygen saturation of about 100% on 2 L of nasal cannula through the day. She apparently had oxygen saturations in the 70s tonight and required high flow oxygen through non-rebreather. I have evaluated the patient. Patient has a bilateral basal crackles, similar to last night. Adjusting her pulse ox monitor showed O2 sats of 94-100% on 2LPM, NC. CXR done tonight showed worsening pulmonary edema - Pt had urine output of about 600 ml today. Lasix 40 mg IV given. Day team to consider increasing dose of scheduled lasix, based on the urine output. ABG showed resp alkalosis / metabolic acidosis. Pt is otherwise clinically stable at this time.
[2016-09-14] MEDS: *HR* Heparin 5,000 UNIT/ML VIAL SQ SCH ×3 (06:05→23:42)
[2016-09-14 06:43] LABS: INR 1.6
[2016-09-14 06:45] LABS: Activated Partial Thrombo Time 32.3 Seconds (26.0-36.0)
[2016-09-14 06:53] LABS: Potassium 3.8 mEq/L (3.5-4.5)
[2016-09-14 07:25] LABS: Basophils % 0.1 %; Eosinophils # 0.1 K/mcL (0.0-0.6); Eosinophils % 1.3 %; Hematocrit 33.8 % (35.3-44.9); Hemoglobin 10.5 g/dL (11.5-15.4); Immature Granulocytes % 0.3 % (0-4); Lymphocytes # 0.7 K/mcL (0.6-4.6); Lymphocytes % 7.4 %; Mean Corpuscular HGB Conc 31.1 g/dL (31.6-35.5); Mean Corpuscular Hemoglobin 28.9 pg (28.0-33.3); Mean Corpuscular Volume 93.1 fL (83.0-100.0); Monocytes # 0.6 K/mcL (0.0-1.3); Monocytes % 7.1 %; Neutrophils # 7.6 K/mcL (1.6-8.9); Platelet Count 127 K/mcL (140-400); Red Blood Count 3.63 M/mcL (3.82-4.97); Red Cell Distribution Width 17.9 % (11.5-14.5); Segmented Neutrophils % 83.8 %
[2016-09-14] MEDS: Lactobacillus 1 EACH CAP.SPRINK PO SCH (09:42)
[2016-09-14] MEDS: Aspirin 81 MG TAB.CHEW PO SCH (09:42)
[2016-09-14] MEDS: Furosemide 40 MG/4 ML VIAL IVP SCH ×2 (09:42→15:44)
[2016-09-14] MEDS: Insulin LISPRO 300 UNITS/3 ML VIAL SQ SCH ×4 (09:42→21:12)
[2016-09-14] MEDS: Sennosides/Docusate Sodium TABLET PO SCH ×2 (09:42→21:07)
[2016-09-14] MEDS: Megestrol Acetate 400 MG/10 ML UDC PO SCH (09:43)
--- NOTE | 2016-09-14 11:53 | Nephrology Consult Note ---
Date of Encounter: 09/14/16 Time of Encounter: 11:50 Assessment and Plan (1) ESTEFANY (acute kidney injury) Current Visit: Yes Status: Acute Elevated SCr in the setting of CHF exacerbation rule out pre-renal state as well and post obstruction but cardiorenal seems most plausible. Agree with diuresis with iv lasix, UOP already improved with improving SCr Will check urine sodium and urea Avoid nephotoxins if possible (2) Hyperkalemia Current Visit: Yes Status: Acute Potassium normalized after spironolactone held and kayexalate given. Will monitor closely (3) CKD (chronic kidney disease) stage 3, GFR 30-59 ml/min Current Visit: Yes Status: Acute Will initiate CKD workup with U/S of kidney Will check urine for protein Will check SPEP and UPEP Will check PTH and vitamin D levels (4) Acute on chronic systolic (congestive) heart failure Current Visit: Yes Status: Acute Continue current iv lasix doses, appears to be working. History of Present Illness - Reason for Consult Consult date: 09/14/16 Chronic Kidney Disease Requesting physician: Daniel Mckee - History of Present Illness 76 y o female with PMH of DM, HTN, dementia, Afib, COPD on home oxygen, CHF with EF of 40%, diastolic dysfunction and stage 3 CKD admitted from [facility] with SOB. SCr noted elevated from baseline at 2.76, GFR with potassium above 6 on presentation. SCr typically around 1.5 and under with GFR 30s to 40s. Renal consulted with management. Diuresis already began with iv lasix and spirolactone held, SCr improving so far. Kayexalate given. Pt is a poor historian and no family at bedside. She reports being aware of CKD but was unable to give any further informatio. Review of her records did not reveal prior CKD workup. Past Med Surg Social Fam HX - Past Medical History Medical history: atrial fibrillation, CHF, COPD, coronary artery disease, CVA, diabetes, hyperlipidemia, hypertension, myocardial infarction, osteoporosis Psychiatric history: depression - Past Surgical History Surgical History: angioplasty/stent, cholecystectomy, hysterectomy - Social History Smoking Status: Never smoker Smokeless Tobacco Status: No Alcohol use: none Drug use: none - Family History Mother Living Status: Hx Family Cardiac Disorders: Yes Hx Family Respiratory Disorders: No Father History Unknown: Yes Living Status: Hx Family Cardiac Disorders: Yes Hx Family Respiratory Disorders: No Hx Family Cancer: Yes (stomach) Medications and Allergies Aspirin 81 mg PO DAILY 04/26/15 [History] Clopidogrel [Plavix] 75 mg PO DAILY 04/26/15 [History] Acetaminophen [Tylenol] 650 mg PO Q6HR PRN 07/16/16 [History] Albuterol Neb [Proventil Neb] 2.5 mg IH Q6H PRN 07/16/16 [History] DiphenhydraMINE [Benadryl] 25 mg PO Q4H PRN 07/16/16 [History] Insulin ASPART [NovoLOG] 0 unit SQ ACHS MDD Sliding Scale 07/16/16 [History] Morphine Sulfate 5 mg PO Q4H PRN 07/16/16 [History] Prochlorperazine Maleate [Compazine] 10 mg PO Q6H PRN 07/16/16 [History] Scopolamine Patch [Transderm-Scop] 1.5 mg TD Q72H PRN 07/16/16 [History] Sennosides/Docusate Sodium [Senna Plus] 1 each PO BID #60 tablet 07/19/16 [Rx] Docusate Sodium [Dok] 100 mg PO BID PRN 08/12/16 [History] Oxybutynin Chloride [Ditropan Xl] 10 mg PO DAILY 08/12/16 [History] Pantoprazole Sodium [Protonix] 20 mg PO DAILY 08/12/16 [History] LORazepam [Ativan] 0.5 mg PO BID PRN #10 tablet 08/14/16 [Rx] Megestrol Acetate [Megace] 400 mg PO DAILY 60 Days 08/14/16 [Rx] Hydrocodone/Acetaminophen [[place] 5-325 Tablet] 1 tab PO Q6H PRN 08/23/16 [ History] Lactobacillus Acidophilus [Acidophilus] 100 mg PO DAILY #30 capsule 08/26/16 [Rx ] OxyCODONE Immed Rel [Roxicodone 5 MG] 10 mg PO Q6HR PRN #24 tablet 08/26/16 [Rx] Glucagon,Human Recombinant [Glucagen] 1 mg IM ONCE PRN 09/12/16 [History] Mirtazapine [Remeron] 30 mg PO HS 09/12/16 [History] Nitroglycerin 0.4 mg SL Q5MIN PRN 09/12/16 [History] Spironolactone [Aldactone] 50 mg PO BID 09/12/16 [History] Allergies No Known Allergies Allergy (Verified 08/12/16 16:29) Review of Systems ROS unobtainable: due to mental status Exam - Vital Signs Vital signs: Initial Vital Signs Temp Pulse Resp BP Pulse Ox 97.4 F L 86 16 125/76 98 09/12/16 15:14 09/12/16 15:14 09/12/16 15:14 09/12/16 15:14 09/12/16 15:14 Vital Signs - Last 8 Hours Temp Pulse Resp BP Pulse Ox 09/14/16 10:45 97.3 F L 102 18 125/78 97 09/14/16 07:24 97.6 F 80 20 144/77 97 09/14/16 04:46 100 Intake and Output 09/13/16 09/14/16 09/14/16 23:59 07:59 15:59 Intake Total 500 / 500 120 / 120 Output Total 1375 / 1375 0 / 0 Balance 500 / 500 -1375 / -1375 120 / 120 Intake: Oral 500 / 500 120 / 120 Output: Urine 0 / 0 Catheter 1375 / 1375 Other: Meal Breakfast Percent of Meal Consumed 50% Weight 73 kg Blood Glucose* 132 157 188 Patient Weight 09/14/16 23:59 Weight 73 kg - General Appearance General appearance: chronically ill (pleasant, comfortable) EENT: ATNC, mucous membranes moist Neck: no JVD, supple Respiratory: course breath sounds Cardiology: edema (+LE bilat), normal S1, normal S2 Gastrointestinal: no tenderness, no guarding Integumentary: warm and dry Neurologic: disoriented Musculoskeletal: no deformities Psychiatric: cooperative Results - Lab Results 09/15/16 06:18 09/15/16 06:18 Most recent lab results ABG pH 7.49 pH Units (7.32-7.45) H 09/13/16 21:50 ABG pCO2 24 mmHg (35-45) L 09/13/16 21:50 ABG pO2 339 mmHg (85-104) H 09/13/16 21:50 ABG HCO3 18.3 mEQ/L (21-27) L 09/13/16 21:50 ABG O2 Saturation 100 % (95-98) H 09/13/16 21:50 Calcium 8.0 mg/dL (8.6-10.8) L 09/14/16 05:56 Phosphorus 4.6 mg/dL (2.3-4.7) 09/13/16 06:05 Magnesium 2.3 mg/dL (1.6-2.6) 09/13/16 06:05 Consult Discharge Plan - Plan Referrals: Niles Hawley DO [Primary Care Provider] -
--- NOTE | 2016-09-14 15:18 | Internal Med Progress Note ---
Date of Encounter: 09/14/16 Time of Encounter: 10:45 - Assessment and plan (1) Hyperkalemia Current Visit: Yes Status: Acute Assessment and plan: Improving Etiology likely multifactorial- spironolactone and renal failure most likely causes. EKG reviewed-no T wave changes noted. K WNL today Continuous cardiac monitoring (2) Acute kidney injury superimposed on CKD Current Visit: Yes Status: Acute Assessment and plan: Possibly cardio-renal With associated metabolic acidosis and hyperkalemia Received IV sodium bicarb for hyperkalemia treatment CO2 improved to 17, continue bicarb po Renal input appreciated Creatinine is improved today as well as GFR, continue lasix (3) Acute on chronic systolic (congestive) heart failure Current Visit: Yes Status: Acute Assessment and plan: Patient with combined CHF EF 40% and moderate LVDD Had an episode of worsening hypoxia overnight, prompting a repeat CXR with an additional dose of lasix Intake/Output is positive Continue to monitor urine output. Strict I/O. Fluid restriction to 1500cc Increased lasix to 40mg IV bid Continue supplemental O2 (4) UTI (urinary tract infection) due to urinary indwelling Del Rosario catheter Current Visit: Yes Status: Acute Assessment and plan: Recurrent Urine culture with Klebsiella , sensitive to ceftriaxone Continue ceftriaxone Blood culture is preliminarily negative Qualifiers: Indwelling urinary catheter type: indwelling urethral catheter Encounter type: subsequent encounter Qualified Code(s): T83.511D - Infection and inflammatory reaction due to indwelling urethral catheter, subsequent encounter ; N39.0 - Urinary tract infection, site not specified (5) Elevated troponin Current Visit: Yes Status: Chronic Assessment and plan: Chronic, stable, possibly from ESRD (6) Metabolic acidosis with normal anion gap and bicarbonate losses Current Visit: Yes Status: Acute Assessment and plan: Acute on chronic from ESTEFANY on CKD Continue po bicarb Monitor closely (7) Age-related physical debility Current Visit: Yes Status: Acute Assessment and plan: Resident of [facility] Fall precautions IN-pt physical therapy as tolerated (8) CAD (coronary artery disease), [place] coronary artery Current Visit: No Status: Chronic Qualifiers: [place] vs. transplanted heart: [place] heart Associated angina: angina presence unspecified Qualified Code(s): I25.10 - Atherosclerotic heart disease of [place] coronary artery without angina pectoris (9) Chronic atrial fibrillation Current Visit: No Status: Chronic (10) Diabetes mellitus Current Visit: Yes Status: Chronic Assessment and plan: FS acceptable, continue monitoring Qualifiers: Diabetes mellitus type: type 2 Diabetes mellitus complication status: with kidney complications Diabetes mellitus complication detail: with chronic kidney disease Diabetes mellitus intermediate school teacher insulin use: with halfway use Chronic kidney disease stage: stage 3 (moderate) Qualified Code(s): E11.22 - Type 2 diabetes mellitus with diabetic chronic kidney disease; N18.3 - Chronic kidney disease, stage 3 (moderate); Z79.4 - FPC (current) use of insulin (11) ICD (implantable cardioverter-defibrillator) in place Current Visit: Yes Status: Chronic - Subjective Interval history: 76 Y/O F with Chronic hypoxic respiratry failure secondary to COPD, on home o2, CHFrEF with EF 40% ( and moderate diastolic dysfunction), Afib s/p AICD on coumadin, HLD, CAD, DM, CKD, s/p CVA, Dementia, Chronic indwelling Del Rosario catheter She is admitted and being managed for acute on chronic kidney disease, possibly cardio-renal, Hyperkalemia, suspected UTI and CHF exacerbation She is seen at bedside with no new complains - Constitutional Vitals: Temp Pulse Resp BP Pulse Ox 97.3 F L 102 18 125/78 97 09/14/16 10:45 09/14/16 10:45 09/14/16 10:45 09/14/16 10:45 09/14/16 10:45 General appearance: Present: A&O X 1, pleasant, no acute distress. Absent: answers questions appropriately - Head Head exam: Present: atraumatic, normocephalic - Eye Eye exam: Present: PERRL, conjuntiva pink, sclera anicteric Pupils: Present: PERRL - Neck Neck exam general surgery: Present: supple, trachea midline. Absent: lymphadenopathy - Respiratory Respiratory exam: Present: rales - Cardiovascular Cardiovascular exam: Present: JVD, +S1, +S2 - GI/Abdominal GI/Abdominal exam: Present: soft, no peritoneal signs. Absent: tenderness - Additional comments: Del Rosario draining clear urine - Extremities Exam Extremities exam: Present: pedal edema - Neurological Exam Neurological exam: Present: alert. Absent: oriented X3, pronater drift, facial droop, speech deficit - Skin Skin exam: Present: dry Internal Medicine: Result - Labs CBC & Chem 7: 09/14/16 05:56 09/14/16 05:56 Labs: Short CBC 09/14/16 Range/Units 05:56 WBC 9.1 (4.3-11.1) K/mcL Hgb 10.5 L (11.5-15.4) g/dL Hct 33.8 L (35.3-44.9) % Plt Count 127 L (140-400) K/mcL Neutrophils # 7.6 (1.6-8.9) K/mcL BMP 09/14/16 05:56 Sodium 138 Potassium 3.8 D Chloride 104 Carbon Dioxide 17 L BUN 66 H Creatinine 2.32 H Glucose 141 H Calcium 8.0 L Cardiac Enzymes 09/14/16 Range/Units 05:56 Troponin I 0.09 H* (0-0.03) ng/mL - ABG Interpretation ABG results: ABG ABG pH 7.49 pH Units (7.32-7.45) H 09/13/16 21:50 ABG pCO2 24 mmHg (35-45) L 09/13/16 21:50 ABG pO2 339 mmHg (85-104) H 09/13/16 21:50 ABG O2 Saturation 100 % (95-98) H 09/13/16 21:50 PT/INR, D-dimer PT 18.0 Seconds (9.4-12.1) H 09/14/16 05:56 - Impressions Impressions Chest X-Ray 09/13/16 21:34 IMPRESSION: Findings suggestive of pulmonary edema, increased since the prior study. D/ / Arline Crenshaw Cha, MD / Arline Crenshaw Cha, MD Interpreting Provider: Arline Crenshaw Cha, MD Consult Discharge Plan - Plan Referrals: Niles Hawley DO [Primary Care Provider] -
[2016-09-14 18:37] LABS: Protein/Creatinine Ratio,Urine 0.24 mg/mg (0-0.20)
[2016-09-14] MEDS: Mirtazapine 15 MG TABLET PO SCH (21:07)
[2016-09-15] MEDS: *HR* Heparin 5,000 UNIT/ML VIAL SQ SCH ×3 (05:38→23:44)
[2016-09-15 07:04] LABS: Hematocrit 33.5 % (35.3-44.9); Hemoglobin 10.6 g/dL (11.5-15.4); Mean Corpuscular HGB Conc 31.6 g/dL (31.6-35.5); Mean Corpuscular Volume 91.8 fL (83.0-100.0); Mean Platelet Volume 12.6 fL (9.4-12.4); Platelet Count 133 K/mcL (140-400); Red Blood Count 3.65 M/mcL (3.82-4.97); Red Cell Distribution Width 18.1 % (11.5-14.5); Segmented Neutrophils % 86.7 %
[2016-09-15 07:05] LABS: Basophils % 0.1 %; Eosinophils # 0.1 K/mcL (0.0-0.6); Eosinophils % 0.5 %; Immature Granulocytes % 0.6 % (0-4); Lymphocytes # 0.6 K/mcL (0.6-4.6); Lymphocytes % 6.1 %; Monocytes # 0.6 K/mcL (0.0-1.3); Neutrophils # 8.4 K/mcL (1.6-8.9)
[2016-09-15 07:16] LABS: Calcium 7.9 mg/dL (8.6-10.8); Potassium 3.8 mEq/L (3.5-4.5)
[2016-09-15] MEDS: Insulin LISPRO 300 UNITS/3 ML VIAL SQ SCH ×4 (09:04→21:50)
[2016-09-15] MEDS: Furosemide 40 MG/4 ML VIAL IVP SCH ×2 (09:05→16:57)
[2016-09-15] MEDS: Megestrol Acetate 400 MG/10 ML UDC PO SCH (09:07)
[2016-09-15] MEDS: Lactobacillus 1 EACH CAP.SPRINK PO SCH (09:07)
[2016-09-15] MEDS: Sennosides/Docusate Sodium TABLET PO SCH ×2 (09:07→20:19)
[2016-09-15] MEDS: Aspirin 81 MG TAB.CHEW PO SCH (09:07)
[2016-09-15] MEDS ORDERED: Morphine Oral CONC 5 MG/0.25 ML ORAL.SYG PO PRN (11:15)
--- NOTE | 2016-09-15 16:12 | Event Note ---
Date of Encounter: 09/15/16 Time of Encounter: 14:00 Reviewed all labs avalable to day. SCr improving at 2.09, GFR 23, will continue diuresis with UOP >2 liters in the past 24hrs. PTH elevated but vitamin D 25 OH still pending. Urine shows insignificant proteinuria. The rest of urine studies insignificant. US of kidney results reviewed, no hydronephrosis. Will see patient in the am for further eval.
--- NOTE | 2016-09-15 16:42 | Internal Med Progress Note ---
Date of Encounter: 09/15/16 Time of Encounter: 11:50 - Assessment and plan (1) Hyperkalemia Current Visit: Yes Status: Resolved Assessment and plan: Improving Etiology likely multifactorial- spironolactone and renal failure most likely causes. EKG reviewed-no T wave changes noted. K WNL today Continuous cardiac monitoring (2) Acute kidney injury superimposed on CKD Current Visit: Yes Status: Acute Assessment and plan: Possibly cardio-renal Improving (3) Acute on chronic systolic (congestive) heart failure Current Visit: Yes Status: Acute Assessment and plan: Patient with combined CHF EF 40% and moderate LVDD Intake/Output is negative, adequate urine output Continue to monitor urine output. Strict I/O. Fluid restriction to 1500cc Continue IV lasix to 40mg bid transition to oral a.m Continue supplemental O2 Patient and daughter to decide discharge disposition , SW will be involved (4) UTI (urinary tract infection) due to urinary indwelling Del Rosario catheter Current Visit: Yes Status: Acute Assessment and plan: Recurrent Urine culture with Klebsiella , sensitive to ceftriaxone Continue ceftriaxone Blood culture is preliminarily negative Qualifiers: Indwelling urinary catheter type: indwelling urethral catheter Encounter type: subsequent encounter Qualified Code(s): T83.511D - Infection and inflammatory reaction due to indwelling urethral catheter, subsequent encounter ; N39.0 - Urinary tract infection, site not specified (5) Elevated troponin Current Visit: Yes Status: Chronic Assessment and plan: Chronic, stable, possibly from ESRD (6) Metabolic acidosis with normal anion gap and bicarbonate losses Current Visit: Yes Status: Acute Assessment and plan: Acute on chronic from ESTEFANY on CKD Continue po bicarb Monitor closely (7) Age-related physical debility Current Visit: Yes Status: Acute Assessment and plan: Resident of SNF Fall precautions IN-pt physical therapy as tolerated (8) CAD (coronary artery disease), [place] coronary artery Current Visit: No Status: Chronic Qualifiers: [place] vs. transplanted heart: [place] heart Associated angina: angina presence unspecified Qualified Code(s): I25.10 - Atherosclerotic heart disease of [place] coronary artery without angina pectoris (9) Chronic atrial fibrillation Current Visit: No Status: Chronic (10) Diabetes mellitus Current Visit: Yes Status: Chronic Assessment and plan: FS acceptable, continue monitoring Qualifiers: Diabetes mellitus type: type 2 Diabetes mellitus complication status: with kidney complications Diabetes mellitus complication detail: with chronic kidney disease Diabetes mellitus terminal operations supervisor insulin use: with [facility] use Chronic kidney disease stage: stage 3 (moderate) Qualified Code(s): E11.22 - Type 2 diabetes mellitus with diabetic chronic kidney disease; N18.3 - Chronic kidney disease, stage 3 (moderate); Z79.4 - terminal operations supervisor (current) use of insulin (11) ICD (implantable cardioverter-defibrillator) in place Current Visit: Yes Status: Chronic - Subjective Interval history: 76 Y/O F with Chronic hypoxic respiratry failure secondary to COPD, on home o2, CHFrEF with EF 40% ( and moderate diastolic dysfunction), Afib s/p AICD on coumadin, HLD, CAD, DM, CKD, s/p CVA, Dementia, Chronic indwelling Del Rosario catheter She is admitted and being managed for acute on chronic kidney disease, possibly cardio-renal, Hyperkalemia, suspected UTI and CHF exacerbation She is seen at bedside with no new complains Urine output in past 24 hrs, >1220, negative balance Renal function is improving, Renal USS no hydronephrosis - Constitutional Vitals: Temp Pulse Resp BP Pulse Ox 97 F L 93 18 120/75 100 09/15/16 15:25 09/15/16 15:25 09/15/16 15:25 09/15/16 15:25 09/15/16 15:25 General appearance: Present: A&O X 1, pleasant, no acute distress. Absent: answers questions appropriately - Head Head exam: Present: atraumatic, normocephalic - Eye Eye exam: Present: PERRL, conjuntiva pink, sclera anicteric Pupils: Present: PERRL - Neck Neck exam general surgery: Present: supple, trachea midline. Absent: lymphadenopathy - Respiratory Respiratory exam: Present: CTAB - Cardiovascular Cardiovascular exam: Present: +S1, +S2, systolic murmur - GI/Abdominal GI/Abdominal exam: Present: normal bowel sounds, soft, no peritoneal signs. Absent: tenderness - Extremities Exam Extremities exam: Present: pedal edema - Neurological Exam Neurological exam: Present: alert. Absent: oriented X3, pronater drift, facial droop, speech deficit - Skin Skin exam: Present: dry Internal Medicine: Result - Labs CBC & Chem 7: 09/15/16 06:18 09/15/16 06:18 Labs: Short CBC 09/15/16 Range/Units 06:18 WBC 9.7 (4.3-11.1) K/mcL Hgb 10.6 L (11.5-15.4) g/dL Hct 33.5 L (35.3-44.9) % Plt Count 133 L (140-400) K/mcL Neutrophils # 8.4 (1.6-8.9) K/mcL BMP 09/15/16 06:18 Sodium 137 Potassium 3.8 Chloride 103 Carbon Dioxide 15 L BUN 63 H Creatinine 2.09 H Glucose 223 H Calcium 7.9 L - ABG Interpretation ABG results: ABG ABG pH 7.49 pH Units (7.32-7.45) H 09/13/16 21:50 ABG pCO2 24 mmHg (35-45) L 09/13/16 21:50 ABG pO2 339 mmHg (85-104) H 09/13/16 21:50 ABG O2 Saturation 100 % (95-98) H 09/13/16 21:50 PT/INR, D-dimer PT 18.0 Seconds (9.4-12.1) H 09/14/16 05:56 - Impressions Impressions Retroperitoneum Ultrasound 09/14/16 13:36 IMPRESSION: No hydronephrosis nor shadowing renal pelvic stones. Overall increased cortical echogenicity is evident, a nonspecific finding suggestive of medical renal disease. D/ / Arline Crenshaw Cha, MD / Arline Crenshaw Cha, MD Interpreting Provider: Arline Crenshaw Cha, MD Consult Discharge Plan - Plan Referrals: Niles Hawley DO [Primary Care Provider] -
[2016-09-15] MEDS: Mirtazapine 15 MG TABLET PO SCH (20:19)
[2016-09-16] MEDS: *HR* Heparin 5,000 UNIT/ML VIAL SQ SCH ×2 (05:55→15:49)
[2016-09-16 06:27] LABS: Calcium 7.4 mg/dL (8.6-10.8); Potassium 4.8 mEq/L (3.5-4.5)
[2016-09-16 07:43] LABS: Basophils % 0.2 %; Eosinophils # 0.1 K/mcL (0.0-0.6); Eosinophils % 1.1 %; Hematocrit 36.8 % (35.3-44.9); Hemoglobin 11.3 g/dL (11.5-15.4); Immature Granulocytes % 0.6 % (0-4); Immature Platelets 9.2 % (1.1-6.1); Lymphocytes % 8.3 %; Mean Corpuscular HGB Conc 30.7 g/dL (31.6-35.5); Mean Corpuscular Hemoglobin 28.1 pg (28.0-33.3); Mean Corpuscular Volume 91.5 fL (83.0-100.0); Monocytes # 0.8 K/mcL (0.0-1.3); Monocytes % 6.7 %; Neutrophils # 9.8 K/mcL (1.6-8.9); Platelet Count 138 K/mcL (140-400); Red Blood Count 4.02 M/mcL (3.82-4.97); Red Cell Distribution Width 18.2 % (11.5-14.5); Segmented Neutrophils % 83.1 %
[2016-09-16] MEDS: Insulin LISPRO 300 UNITS/3 ML VIAL SQ SCH ×2 (08:37→11:37)
[2016-09-16] MEDS: Lactobacillus 1 EACH CAP.SPRINK PO SCH (08:38)
[2016-09-16] MEDS: Sennosides/Docusate Sodium TABLET PO SCH (08:38)
[2016-09-16] MEDS: Aspirin 81 MG TAB.CHEW PO SCH (08:38)
[2016-09-16] MEDS: Furosemide 40 MG/4 ML VIAL IVP SCH (08:39)
[2016-09-16] MEDS: Megestrol Acetate 400 MG/10 ML UDC PO SCH (08:39)
--- NOTE | 2016-09-16 10:19 | Discharge Summary ---
Date of Encounter: 09/16/16 Time of Encounter: 10:16 - Discharge Diagnosis (1) Hyperkalemia Priority: Secondary Status: Resolved (2) Acute kidney injury superimposed on CKD Priority: Primary Status: Acute (3) Acute on chronic systolic (congestive) heart failure Priority: Primary Status: Acute (4) UTI (urinary tract infection) due to urinary indwelling Del Rosario catheter Priority: Primary Status: Acute Qualifiers: Indwelling urinary catheter type: indwelling urethral catheter Encounter type: subsequent encounter Qualified Code(s): T83.511D - Infection and inflammatory reaction due to indwelling urethral catheter, subsequent encounter ; N39.0 - Urinary tract infection, site not specified (5) Elevated troponin Priority: Secondary Status: Chronic (6) Metabolic acidosis with normal anion gap and bicarbonate losses Priority: Secondary Status: Acute (7) Age-related physical debility Priority: Secondary Status: Acute (8) CAD (coronary artery disease), [place] coronary artery Priority: Secondary Status: Chronic Qualifiers: [place] vs. transplanted heart: [place] heart Associated angina: angina presence unspecified Qualified Code(s): I25.10 - Atherosclerotic heart disease of [place] coronary artery without angina pectoris (9) Chronic atrial fibrillation Priority: Secondary Status: Chronic (10) Diabetes mellitus Priority: Secondary Status: Chronic Qualifiers: Diabetes mellitus type: type 2 Diabetes mellitus complication status: with kidney complications Diabetes mellitus complication detail: with chronic kidney disease Diabetes mellitus long-term insulin use: with long-term use Chronic kidney disease stage: stage 3 (moderate) Qualified Code(s): E11.22 - Type 2 diabetes mellitus with diabetic chronic kidney disease; N18.3 - Chronic kidney disease, stage 3 (moderate); Z79.4 - termite control technician (current) use of insulin (11) ICD (implantable cardioverter-defibrillator) in place Priority: Secondary Status: Chronic - Discharge Medications Prescriptions: Amoxicillin/Clavulanate [Augmentin] 875 mg PO BIDWM #6 tablet Furosemide [Lasix] 60 mg PO DAILY #60 tablet Sodium Bicarbonate 1,300 mg PO BID #50 tablet Home Medications: Aspirin 81 mg PO DAILY 04/26/15 [History] Clopidogrel [Plavix] 75 mg PO DAILY 04/26/15 [History] Acetaminophen [Tylenol] 650 mg PO Q6HR PRN 07/16/16 [History] Albuterol Neb [Proventil Neb] 2.5 mg IH Q6H PRN 07/16/16 [History] DiphenhydraMINE [Benadryl] 25 mg PO Q4H PRN 07/16/16 [History] Insulin ASPART [NovoLOG] 0 unit SQ ACHS MDD Sliding Scale 07/16/16 [History] Morphine Sulfate 5 mg PO Q4H PRN 07/16/16 [History] Prochlorperazine Maleate [Compazine] 10 mg PO Q6H PRN 07/16/16 [History] Scopolamine Patch [Transderm-Scop] 1.5 mg TD Q72H PRN 07/16/16 [History] Sennosides/Docusate Sodium [Senna Plus] 1 each PO BID #60 tablet 07/19/16 [Rx] Docusate Sodium [Dok] 100 mg PO BID PRN 08/12/16 [History] Oxybutynin Chloride [Ditropan Xl] 10 mg PO DAILY 08/12/16 [History] Pantoprazole Sodium [Protonix] 20 mg PO DAILY 08/12/16 [History] LORazepam [Ativan] 0.5 mg PO BID PRN #10 tablet 08/14/16 [Rx] Megestrol Acetate [Megace] 400 mg PO DAILY 60 Days 08/14/16 [Rx] Hydrocodone/Acetaminophen [[place] 5-325 Tablet] 1 tab PO Q6H PRN 08/23/16 [ History] Lactobacillus Acidophilus [Acidophilus] 100 mg PO DAILY #30 capsule 08/26/16 [Rx ] OxyCODONE Immed Rel [Roxicodone 5 MG] 10 mg PO Q6HR PRN #24 tablet 08/26/16 [Rx] Glucagon,Human Recombinant [Glucagen] 1 mg IM ONCE PRN 09/12/16 [History] Mirtazapine [Remeron] 30 mg PO HS 09/12/16 [History] Nitroglycerin 0.4 mg SL Q5MIN PRN 09/12/16 [History] Amoxicillin/Clavulanate [Augmentin] 875 mg PO BIDWM #6 tablet 09/16/16 [Rx] Furosemide [Lasix] 60 mg PO DAILY #60 tablet 09/16/16 [Rx] Sodium Bicarbonate 1,300 mg PO BID #50 tablet 09/16/16 [Rx] Spironolactone [Aldactone] 25 mg PO BID #0 09/16/16 [Rx] Allergies/Adverse Reactions: Allergies No Known Allergies Allergy (Verified 08/12/16 16:29) Procedures/tests Complete & Pending: Procedures Performed prior 72 hours Category Date Time Status US retroperitoneal limited [US] Routine Exams 09/14/16 13:36 Completed Date of admission: 09/13/16 03:18 Primary care physician: Niles Hawley Consults: 09/13/16 16:06 Consult to Nephrology [CONS] Routine Consulting Provider: [facility] Sp[facility] MAHAN/BEV Reason for Consult: ESTEFANY on CKD Call Completed: No Discharging clinician: Daniel Mckee Anticipated date of discharge: 09/16/16 - Patient Status Disposition: Transfer SNF Condition: Good Functional capacity at discharge: bed bound Overall status at discharge: patient is back to baseline - Discharge Instructions Follow Up With: Niles Hawley, [Primary Care Provider] - - Diet and Activity Activity: as per physical therapy, resume usual activities as tolerated Diet: diabetic diet, low fat, low cholesterol, low salt diet Interval History: See below Hospital course: 76 Y/O F with Chronic hypoxic respiratry failure secondary to COPD, on home o2, CHFrEF with EF 40% ( and moderate diastolic dysfunction), Afib s/p AICD on coumadin, HLD, CAD, DM, CKD, s/p CVA, Dementia, Chronic indwelling Del Rosario catheter She was admitted and being managed for acute on chronic kidney disease, possibly cardio-renal, Hyperkalemia, Klebisella UTI and CHF exacerbation She is seen at bedside with no new complains Renal function is improved Urine culture with Klebsiella , sensitive to ceftriaxone, Unasyn, bactrim Blood culture was negative Renal USS showed no hydronephrosis nor shadowing renal pelvic stones, showed evidence of CKD She was managed with intravenous antibiotics-Ceftriaxone which she received for 4 days, she was also on IV lasix 40mg bid, with improvement in urine output and kidney function We recommend Augmentin po for 3 more days for Klebisella UTI She presented with hyperkalemia with no acute EKG changes, she did not require hemodialysis, and potassium is acceptable It is recommended to decrease her current spironolactone dose to 25mg po bid, and to continue with her lasix at 60mg po daily Kindly monitor chem initially q48 hours, and once weekly after stabilization of potassium Follow up with hydraulics teacher as out-patient Patient is stable to return to SNF - Time Spent with Patient Total time spent providing and/or coordinating discharge services: Less than 30 minutes - Constitutional Vitals: Temp Pulse Resp BP Pulse Ox 97.9 F 103 20 120/65 92 L 09/16/16 06:27 09/16/16 06:27 09/16/16 06:09/16/16 06:09/16/16 09:00 General appearance: Present: A&O X 1, pleasant, no acute distress. Absent: answers questions appropriately - Head Head exam: Present: atraumatic, normocephalic - Eye Eye exam: Present: PERRL, conjuntiva pink, sclera anicteric Pupils: Present: PERRL - Neck Neck exam general surgery: Present: supple, trachea midline. Absent: lymphadenopathy - Respiratory Respiratory exam: Present: CTAB. Absent: accessory muscle use, rales, rhonchi, wheezes - Cardiovascular Cardiovascular exam: Present: irregular rhythm, +S1, +S2, systolic murmur. Absent: diastolic murmur, gallop, rubs - GI/Abdominal GI/Abdominal exam: Present: normal bowel sounds, soft, no peritoneal signs. Absent: distended, tenderness - Extremities Exam Extremities exam: Present: pedal edema - Neurological Exam Neurological exam: Present: alert, no focal deficits. Absent: oriented X3 - Skin Skin exam: Present: dry
[2016-09-16 10:50] VITALS: BP 119/64
--- NOTE | 2016-09-16 11:58 | Nephrology Progress Note ---
Date of Encounter: 09/16/16 Time of Encounter: 11:50 - Assessment and Plan (1) ESTEFANY (acute kidney injury) Status: Acute SCr improving at 1.79, GFR 28, not yet at baseline. continue diuresis UOP not as impressive yesterday but acceptable Continue to avoid nephrotoxins where possible (2) Hyperkalemia Status: Resolved Potassium slightly elevated at 4.9, will monitor (3) CKD (chronic kidney disease) stage 3, GFR 30-59 ml/min Status: Acute Baseline GFR typically around 30-40s (4) Acute on chronic systolic (congestive) heart failure Status: Acute Subjective Interval history: Pt seen and examined breathing much improved with less LE edema. Objective - Vital Signs Vital signs: Vital Signs Temp Pulse Resp BP Pulse Ox 09/16/16 10:48 97.4 F L 102 18 119/64 98 09/16/16 09:00 92 L 09/16/16 08:54 92 L 09/16/16 06:27 97.9 F 103 20 120/65 98 09/16/16 04:32 97.9 F 102 17 125/74 97 09/15/16 23:55 98.2 F 101 17 114/67 99 09/15/16 20:55 98 09/15/16 19:43 98.2 F 94 18 132/84 100 09/15/16 15:25 97 F L 93 18 120/75 100 Intake and Output 09/15/16 09/16/16 09/16/16 23:59 07:59 15:59 Intake Total 340 / 340 50 / 50 Output Total 300 / 300 200 / 200 Balance 40 / 40 -150 / -150 Intake: IV Fluids 100 / 100 Rocephin 1,000 MG In 100 / 100 Dextrose 5% (Minibag+) 100 ML 100 ML @ 200 mls/ hr IVPB Q24H [facility] Rx#: [id number] Oral 240 / 240 50 / 50 Output: Urine 200 / 200 Urethral (Del Rosario) 200 / 200 Catheter 300 / 300 Other: Meal Dinner Percent of Meal Consumed 10% Weight 75.2 kg 72.121 kg Blood Glucose* 96 75 169 Patient Weight 09/16/16 23:59 Weight 72.121 kg - General Appearance General appearance: Present: chronically ill (NAD) EENT: Present: ATNC, mucous membranes moist Neck: Present: no JVD, supple Additional Comments: improved areation bilat Cardiology: Present: edema (less LE bilat), normal S1, normal S2 Gastrointestinal: Present: no tenderness, no guarding Integumentary: Present: warm and dry Neurologic: Present: disoriented Musculoskeletal: Present: no deformities Psychiatric: Present: cooperative - Lab 09/16/16 07:22 09/16/16 05:58 Most recent lab results ABG pH 7.49 pH Units (7.32-7.45) H 09/13/16 21:50 ABG pCO2 24 mmHg (35-45) L 09/13/16 21:50 ABG pO2 339 mmHg (85-104) H 09/13/16 21:50 ABG HCO3 18.3 mEQ/L (21-27) L 09/13/16 21:50 ABG O2 Saturation 100 % (95-98) H 09/13/16 21:50 Calcium 7.4 mg/dL (8.6-10.8) L 09/16/16 05:58 Phosphorus 4.6 mg/dL (2.3-4.7) 09/13/16 06:05 Magnesium 2.3 mg/dL (1.6-2.6) 09/13/16 06:05 Urine Creatinine 62 mg/dL 09/14/16 18:20 Urine Sodium 30.0 mEq/L 09/14/16 18:20 Urine Total Protein 15 mg/dL (1-14) H 09/14/16 18:20 Consult Discharge Plan - Plan Instructions: Urinary Tract Infection in Women (DC), Diabetes Mellitus Type 2 in Adults (DC) Referrals: Niles Hawley DO [Primary Care Provider] - Prescriptions: Amoxicillin/Clavulanate [Augmentin] 875 mg PO BIDWM #6 tablet Furosemide [Lasix] 60 mg PO DAILY #60 tablet Sodium Bicarbonate 1,300 mg PO BID #50 tablet
--- NOTE | 2016-09-16 16:20 | Physician Discharge Referral ---
ExtendedCare Referral Info Transfer To: SNF Provider in Charge after Transfer: PCP Institutional Level of Care: Skilled - Diagnosis (1) Hyperkalemia Priority: Primary Status: Resolved (2) Acute kidney injury superimposed on CKD Priority: Primary Status: Acute (3) Acute on chronic systolic (congestive) heart failure Priority: Primary Status: Acute (4) UTI (urinary tract infection) due to urinary indwelling Del Rosario catheter Priority: Primary Status: Acute (5) Elevated troponin Priority: Secondary Status: Chronic (6) Metabolic acidosis with normal anion gap and bicarbonate losses Priority: Primary Status: Acute (7) Age-related physical debility Priority: Secondary Status: Acute (8) CAD (coronary artery disease), [place] coronary artery Priority: Secondary Status: Chronic (9) Chronic atrial fibrillation Priority: Secondary Status: Chronic (10) Diabetes mellitus Priority: Secondary Status: Chronic (11) ICD (implantable cardioverter-defibrillator) in place Priority: Secondary Status: Chronic - Transfer Medications Prescriptions: Amoxicillin/Clavulanate [Augmentin] 875 mg PO BIDWM #6 tablet Furosemide [Lasix] 60 mg PO DAILY #60 tablet Sodium Bicarbonate 1,300 mg PO BID #50 tablet Home Medications: Aspirin 81 mg PO DAILY 04/26/15 [History] Clopidogrel [Plavix] 75 mg PO DAILY 04/26/15 [History] Acetaminophen [Tylenol] 650 mg PO Q6HR PRN 07/16/16 [History] Albuterol Neb [Proventil Neb] 2.5 mg IH Q6H PRN 07/16/16 [History] DiphenhydraMINE [Benadryl] 25 mg PO Q4H PRN 07/16/16 [History] Insulin ASPART [NovoLOG] 0 unit SQ ACHS MDD Sliding Scale 07/16/16 [History] Morphine Sulfate 5 mg PO Q4H PRN 07/16/16 [History] Prochlorperazine Maleate [Compazine] 10 mg PO Q6H PRN 07/16/16 [History] Scopolamine Patch [Transderm-Scop] 1.5 mg TD Q72H PRN 07/16/16 [History] Sennosides/Docusate Sodium [Senna Plus] 1 each PO BID #60 tablet 07/19/16 [Rx] Docusate Sodium [Dok] 100 mg PO BID PRN 08/12/16 [History] Oxybutynin Chloride [Ditropan Xl] 10 mg PO DAILY 08/12/16 [History] Pantoprazole Sodium [Protonix] 20 mg PO DAILY 08/12/16 [History] LORazepam [Ativan] 0.5 mg PO BID PRN #10 tablet 08/14/16 [Rx] Megestrol Acetate [Megace] 400 mg PO DAILY 60 Days 08/14/16 [Rx] Hydrocodone/Acetaminophen [[place] 5-325 Tablet] 1 tab PO Q6H PRN 08/23/16 [ History] Lactobacillus Acidophilus [Acidophilus] 100 mg PO DAILY #30 capsule 08/26/16 [Rx ] OxyCODONE Immed Rel [Roxicodone 5 MG] 10 mg PO Q6HR PRN #24 tablet 08/26/16 [Rx] Glucagon,Human Recombinant [Glucagen] 1 mg IM ONCE PRN 09/12/16 [History] Mirtazapine [Remeron] 30 mg PO HS 09/12/16 [History] Nitroglycerin 0.4 mg SL Q5MIN PRN 09/12/16 [History] Amoxicillin/Clavulanate [Augmentin] 875 mg PO BIDWM #6 tablet 09/16/16 [Rx] Furosemide [Lasix] 60 mg PO DAILY #60 tablet 09/16/16 [Rx] Sodium Bicarbonate 1,300 mg PO BID #50 tablet 09/16/16 [Rx] Spironolactone [Aldactone] 25 mg PO BID #0 09/16/16 [Rx] Allergies/Adverse Reactions: Allergies No Known Allergies Allergy (Verified 08/12/16 16:29) - Respiratory Orders Oxygen / L per min (2L/minute and tirate to achieve O2 sat of at least 92%) Smoking Cessation: Smoking cessation has been advised. For more information, call the [place] Tobacco Quit Line at 0-315-AHYR-NOW. - Advance Directives Living Will: Yes Power of Sales Team Recruiter: Yes Code Status: DNR-Arrest/Don't Intubate - Mobility Orders Ambulate - Rehabiliation Orders Rehab Potential: Fair Rehab Orders: Evaluation for Physical Therapy - Diet Orders Renal, Cardiac CERTIFICATION: I certify that the transfer of the above named patient to an Extended Care Facility is necessary for the continuing treatment of the diagnosis listed. The above information is true and accurate reflection of patient's current condition. Confidential - Redisclosure prohibited without a patient's written consent.
[2016-09-18 11:38] LABS: Urine Collection Duration RANDOM hr; Urine Collection Volume RANDOM mL
[2016-09-20 08:37] LABS: Alpha 2 Globulin (PEP) 0.9 g/dL (0.5-1.1); Beta Globulin (PEP) 0.9 g/dL (0.5-1.1)
== END 2016-09-16 17:00 | DRG 698 ==
LOC: 2ANU 15:11 → EMEROO 15:11 → 2ANU 19:55
PROVIDERS: ADMIT Nurse Practitioner Family; ATTEND Internal Medicine